=== PATIENT | female | born 1965 | race African-American/Black ===

== ENCOUNTER 2017-02-23 08:58 | Observation (INO) | payer BC ==
[2017-02-23] MEDS ORDERED: Aspirin Low Dose CHEW TAB* 81 MG PO ONE (10:47)
[2017-02-23] MEDS ORDERED: Ketorolac INJ* 30 MG/ML 1 ML VIAL IV PUSH ONE (11:14)
[2017-02-23] MEDS ORDERED: Morphine INJ* 4 MG/ML 1 ML SYRINGE IV ONE (11:14)
[2017-02-23] MEDS ORDERED: Ondansetron INJ* 2 MG/ML VIAL IV ONE (11:14)
[2017-02-23 11:31] LABS: Urine Bilirubin Negative (Negative); Urine Glucose Negative (Negative); Urine Nitrite Negative (Negative)
[2017-02-23 11:40] LABS: Hematocrit 40 % (35-47); Hemoglobin 12.9 g/dl (12.0-16.0); Mean Corpuscular HGB Conc 32 g/dl (31-36); Mean Corpuscular Hemoglobin 29 pg (27-31); Mean Corpuscular Volume 89 fL (80-97); Mean Platelet Volume 9 um3 (7.4-10.4); Red Blood Count 4.46 10^6/ul (4.0-5.4); Red Cell Distribution Width 14 % (10.5-15); White Blood Count 10.3 10^3/ul (3.5-10.8)
--- NOTE | 2017-02-23 11:49 | RAD ---
INDICATION: Chest pain. COMPARISON: Comparison is made with a prior chest x-ray study from July 20, 2008. TECHNIQUE: A portable view of the chest was obtained. FINDINGS: Cardiac and mediastinal contours appear to be within normal limits. The lungs are clear. No pleural effusion is seen. IMPRESSION: NO EVIDENCE FOR ACUTE DISEASE.
[2017-02-23 11:52] LABS: BUN/Creatinine Ratio 13.7 (8-20); Calcium 9.7 mg/dL (8.6-10.3); EGFR African American 73.8 (>60); EGFR Non-African American 57.4 (>60); Globulin 3.2 g/dL (2-4); Potassium 3.8 mmol/L (3.5-5.0); Total Bilirubin 0.4 mg/dL (0.2-1.0); Total Protein 7.2 g/dL (6.4-8.9)
[2017-02-23] MEDS ORDERED: Iohexol 350* (CONTRAST) 500 ML MDV IV ONE (12:16)
--- NOTE | 2017-02-23 12:49 | RAD ---
HISTORY: Chest pain, flank pain COMPARISONS: CT of the abdomen and pelvis dated November 12, 2015 TECHNIQUE: Multiple contiguous axial CT scans were obtained of the chest, abdomen, and pelvis after the administration of intravenous contrast. Coronal and sagittal multiplanar reformations are submitted for review.. Oral contrast was not administered. Delayed images were obtained through the abdomen and pelvis. FINDINGS: CHEST NECK AND THYROID: The lower neck and thyroid are unremarkable. CHEST WALL: There is no lower cervical, axillary, or supraclavicular lymphadenopathy by size criteria. HEART AND PERICARDIUM: The heart is unremarkable. AORTA AND PULMONARY VASCULATURE: The aorta and pulmonary vasculature are normal. There is no pulmonary arterial filling defects to suggest pulmonary was in MEDIASTINUM: There is no mediastinal lymphadenopathy by size criteria. BRET: There is no hilar lymphadenopathy by size criteria. AIRWAY AND ESOPHAGUS: The airway is unremarkable, without endobronchial filling defect. The esophagus is grossly normal. LUNG PARENCHYMA: The lungs are clear. PLEURA: No pleural abnormalities are noted. BONES AND SOFT TISSUES: Degenerative changes are noted ABDOMEN/PELVIS: LIVER: The liver is normal in shape, size, contour, and attenuation. BILE DUCTS: There is no intrahepatic or extrahepatic biliary dilatation. GALLBLADDER: The gallbladder is normal, without pericholecystic inflammatory change. PANCREAS: The pancreas is normal, without mass or ductal dilatation. SPLEEN: Normal in size and appearance. UPPER GI TRACT: Evaluation of the gastrointestinal tract is limited by incomplete gastric distention. The upper GI tract is unremarkable. SMALL BOWEL \T\ MESENTERY: The small bowel is normal in contour, course, and caliber. There is no obstruction or dilatation. COLON: There are multiple diverticula of the distal colon. There is no pericolonic inflammatory change. Normal appendix is best seen on axial images 59 through 66 ADRENALS: Normal bilaterally. KIDNEYS: The kidneys are normal in shape, size, contour, and axis. There is no hydronephrosis or nephrolithiasis. BLADDER: The bladder is incompletely distended and is not well evaluated. PELVIC ORGANS: The uterus and adnexa are grossly normal for technique. AORTA: The aorta is normal. IVC: Unremarkable LYMPH NODES: There is no lymphadenopathy by size criteria. ABDOMINAL WALL: There is no evidence for abdominal wall hernia. BONES: There are mild diffuse degenerative changes. OTHER: None IMPRESSION: 1. NO PULMONARY ARTERIAL FILLING DEFECT TO SUGGEST PULMONARY EMBOLISM. 2. DIVERTICULOSIS, WITHOUT PERICOLONIC INFLAMMATORY CHANGE TO SUGGEST DIVERTICULITIS
[2017-02-23] MEDS ORDERED: oxyCODONE/Acetamin 5/325 MG* TAB PO ONE ×2 (13:02→21:34)
[2017-02-23] MEDS ORDERED: Lisinopril TAB* 10 MG PO ONE (15:04)
--- NOTE | 2017-02-23 15:18 | CONSULT ---
Subjective Date of Service: 02/23/17 Interval History: ADMISSION HISTORY AND PHYSICAL EXAM: Allergies Allergy/AdvReac Type Severity Reaction Status Date / Time Hydrocodone Allergy Severe Vomiting Verified 11/11/15 22:32 Home Medications Medication Instructions Recorded Confirmed Type SUMAtriptan TAB* [Imitrex TAB*] 100 mg PO Q6HR PRN 10/12/13 11/12/15 History Amitriptyline TAB* [Elavil TAB*] 50 mg PO BEDTIME 10/27/15 11/12/15 History Topiramate TAB(*) [Topamax 25 MG 50 mg PO DAILY 10/27/15 11/12/15 History tab] HPI: The patient was in her usual state of health until 5 AM today. She awoke from sleep with R scapular pain. She was afraid she had a PE. She had a PE in 2007 about 2 weeks after L knee arthroscopic surgery. She does not recall any unusual activity or injury recently. She had a normal day at work yesterday. Family History: Findings - No family hx cancer, heart disease. Social History: Findings - Lives with her who is her SDM. 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 No alcohol or tobacco abuse. Review of Systems - Measurements Intake and Output: Intake and Output Last 24 Hours 02/21/17 02/22/17 02/23/17 02/24/17 06:59 06:59 06:59 06:59 Intake Total 2 Balance 2 Weight 295 lb Intake: IV Fluids 2 - Review of Systems Constitutional Symptoms: Negative: Weight Gain, Weight Loss, Weakness, Fatigue, Fever, Night Sweats, Unexplained Falls, Other Dermatology: Positive: Normal HEENT: Positive: Normal Eyes: Positive: Normal Thyroid: Positive: Normal Pulmonary: Positive: Normal Gastroenterology: Positive: Normal Genital - Urinary: Positive: Normal Musculoskeletal: Negative: Joint Pain, Joint Stiffness, Arthritis, Osteoporosis, Low Back Pain , Sciatica, Joint Deformities, Kyphoscoliosis, Other Endocrinology: Positive: Normal Hematologic/Lymphatic: Negative: Anemia, Easy Brusing, Hx Leukemia, Hx Lymphoma, Use of Anticoagulant, Use of Antiplatelet Drugs, Other Neurology: Positive: Migraines - Last migraine several months ago Psychiatry: Positive: Normal Allergic/Immunologic: Negative: Hx Anaphylaxis, Hx Angioedema, Hx Environmental, Hx Seasonal, Athsma, Hx HIV, Immunocompromise, Swollen Glands LymphNodes, Other Objective Vital Signs 02/23/17 02/23/17 02/23/17 09:02 10:03 10:05 Temperature 97.1 F Pulse Rate 84 78 Respiratory 24 Rate Blood Pressure 141/84 145/106 (mmHg) O2 Sat by Pulse 99 99 Oximetry 02/23/17 02/23/17 02/23/17 10:28 10:29 10:30 Temperature 97.2 F Pulse Rate 74 Respiratory 18 12 10 Rate Blood Pressure 171/111 159/129 171/111 (mmHg) O2 Sat by Pulse 99 Oximetry 02/23/17 02/23/17 02/23/17 11:00 11:30 11:35 Temperature Pulse Rate 73 76 Respiratory 14 16 Rate Blood Pressure 176/126 173/116 (mmHg) O2 Sat by Pulse 99 100 Oximetry 02/23/17 02/23/17 02/23/17 11:46 12:00 12:39 Temperature Pulse Rate 75 73 Respiratory 17 Rate Blood Pressure 177/120 (mmHg) O2 Sat by Pulse 98 97 98 Oximetry 02/23/17 02/23/17 02/23/17 12:50 13:00 13:11 Temperature Pulse Rate 72 72 Respiratory 17 16 Rate Blood Pressure 162/124 183/122 (mmHg) O2 Sat by Pulse 99 99 Oximetry 02/23/17 02/23/17 02/23/17 13:30 14:00 14:30 Temperature Pulse Rate 76 72 73 Respiratory 19 17 18 Rate Blood Pressure 188/106 160/113 (mmHg) O2 Sat by Pulse 99 98 100 Oximetry Oxygen Devices in Use Now: None Appearance: Alert, partly up on ED stretcher. In good spirits. Looks comfortable. Eyes: No Scleral Icterus Ears/Nose/Mouth/Throat: Clear Oropharnyx, Mucous Membranes Moist Neck: NL Appearance and Movements; NL JVP, No Thyroid Enlargement, Masses Respiratory: Symmetrical Chest Expansion and Respiratory Effort, Clear to Auscultation, Clear to Percussion Cardiovascular: NL Sounds; No Murmurs; No JVD, RRR, No Edema Abdominal: NL Sounds; No Tenderness; No Distention, No Hepatosplenomegaly Extremities: No Edema, No Clubbing, Cyanosis, - - Full ROM R arm/shoulder, sl pain on elevating arm. No chest wall/scapular tenderness Skin: No Rash or Ulcers, No Nodules or Sclerosis Neurological: Alert and Oriented x 3, NL Sensation Result Diagrams: 02/23/17 11:25 02/23/17 11:25 Assessment/Plan - Billing Plan By Medical Problem: 1. Scapular pain: appears to be musculoskeletal. Recommend APAP, heat. 2. HTN: Lisinopril 20 mg + metoprolol 25 mg given in ED. 3. Hx migraines. She hasn't had a migraine for several months and took no prescriptions meds for the past few months.
[2017-02-23] MEDS ORDERED: Metoprolol Tartrate TAB* 25 MG PO ONE (17:34)
[2017-02-23] MEDS ORDERED: oxyCODONE/Acetamin 5/325 MG* TAB PO PRN (17:36)
[2017-02-23] MEDS ORDERED: Enoxaparin(*) 40 MG/0.4 ML SYR SUBCUT SCH (18:00)
[2017-02-23] MEDS: Lisinopril TAB* 10 MG PO SCH (19:48)
[2017-02-23] MEDS: Metoprolol Tartrate TAB* 25 MG PO SCH (22:07)
[2017-02-24] MEDS: oxyCODONE/Acetamin 5/325 MG* TAB PO PRN ×3 (00:58→08:17)
[2017-02-24] MEDS: Metoprolol Tartrate TAB* 25 MG PO SCH (08:16)
[2017-02-24] MEDS: Lisinopril TAB* 10 MG PO SCH (08:20)
[2017-02-24 12:04] VITALS: BP 144/93
--- NOTE | 2017-02-24 12:10 | DCNOTE ---
"Subjective Date of Service: 02/24/17 Interval History: R scapular pain improved since yesterday. No new c/o. Anxious to go home. Family History: Findings - No family hx cancer, heart disease. Social History: Findings - Lives with her who is her SDM. 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 No alcohol or tobacco abuse. Objective Active Medications: Enoxaparin Sodium (Lovenox(*)) 40 mg SUBCUT Q24H [facility] Last Admin: 02/23/17 19:47 Dose: 40 mg Lisinopril (Prinivil Tab*) 20 mg PO BID [facility] Last Admin: 02/24/17 08:20 Dose: 20 mg Metoprolol Tartrate (Lopressor Tab*) 25 mg PO BID [facility] Last Admin: 02/24/17 08:16 Dose: 25 mg Oxycodone/Acetaminophen (Percocet 5/325 Tab*) 1 tab PO Q4H PRN PRN Reason: PAIN Last Admin: 02/23/17 19:48 Dose: 1 tab Oxycodone/Acetaminophen (Percocet 5/325 Tab*) 2 tab PO Q4H PRN PRN Reason: PAIN - MODERATE TO SEVERE Last Admin: 02/24/17 08:17 Dose: 2 tab Vital Signs 02/23/17 02/23/17 02/23/17 17:59 18:00 18:30 Temperature 98.6 F Pulse Rate 62 75 68 Respiratory 18 Rate Blood Pressure 155/95 (mmHg) O2 Sat by Pulse 100 99 99 Oximetry 02/23/17 02/23/17 02/23/17 19:05 19:48 20:00 Temperature 98.7 F Pulse Rate 99 Respiratory 16 18 18 Rate Blood Pressure 172/112 (mmHg) O2 Sat by Pulse Oximetry 02/23/17 02/23/17 02/23/17 21:48 21:58 22:05 Temperature 97.6 F Pulse Rate 72 Respiratory 18 18 18 Rate Blood Pressure 132/91 (mmHg) O2 Sat by Pulse 100 Oximetry 02/23/17 02/23/17 02/24/17 23:12 23:58 00:58 Temperature 97.9 F Pulse Rate 72 Respiratory 16 18 18 Rate Blood Pressure 116/90 (mmHg) O2 Sat by Pulse 100 Oximetry 02/24/17 02/24/17 02/24/17 02:58 03:28 04:07 Temperature 97.8 F 97.5 F Pulse Rate 65 68 Respiratory 18 18 16 Rate Blood Pressure 138/58 152/95 (mmHg) O2 Sat by Pulse 99 99 Oximetry 02/24/17 02/24/17 02/24/17 04:59 06:59 08:09 Temperature 97.6 F Pulse Rate 66 Respiratory 18 16 16 Rate Blood Pressure 137/100 (mmHg) O2 Sat by Pulse 97 Oximetry 02/24/17 08:17 Temperature Pulse Rate Respiratory 16 Rate Blood Pressure (mmHg) O2 Sat by Pulse Oximetry Oxygen Devices in Use Now: None Appearance: Alert, partly up in bed. In good spirits. Looks comfortable at rest. Neck: NL Appearance and Movements; NL JVP, No Thyroid Enlargement, Masses Respiratory: Symmetrical Chest Expansion and Respiratory Effort, Clear to Auscultation, Clear to Percussion Cardiovascular: NL Sounds; No Murmurs; No JVD, RRR, No Edema, - - point tenderness R scapular area Extremities: No Edema, No Clubbing, Cyanosis, - Skin: No Rash or Ulcers, No Nodules or Sclerosis, - Neurological: Alert and Oriented x 3, NL Sensation Result Diagrams: 02/23/17 11:25 02/23/17 11:25 Assess/Plan/Problems-Billing Plan By Medical Problem: 1. Scapular pain: appears to be musculoskeletal. Recommend APAP, heat. 2. HTN: Lisinopril 20 mg + metoprolol 25 mg given in ED. 3. Hx migraines. She hasn't had a migraine for several months and took no prescriptions meds for the past few months. - Patient Problems (1) HTN (hypertension) Current Visit: Yes Status: Acute Code(s): I10 - ESSENTIAL (PRIMARY) HYPERTENSION SNOMED Code(s): 53095952 Comment: Improved on lisinopril and BB. Fup Dr. Carroll within 1 week. (2) Migraine Current Visit: No Status: Acute Code(s): G43.909 - MIGRAINE, UNSP, NOT INTRACTABLE, WITHOUT STATUS MIGRAINOSUS SNOMED Code(s): 99602774 Comment: Continue home meds prn. Status and Disposition: Discharge now. Cooperp Dr. Carroll. Search Terms: gwen fagan, 1965 Search Date: 02/24/2017 12:14:53 PM The Drug Utilization Report below displays all of the controlled substance prescriptions, if any, that your patient has filled in the last twelve months. The information displayed on this report is compiled from pharmacy submissions to the Department, and accurately reflects the information as submitted by the pharmacies. This report was requested by: Jesus Manuel Ardian | Reference #: [id number] Others' Prescriptions Patient Name: Gwen Fagan Date: 1965 Address: [address] [place] [address] Sex: Female Rx Written Rx Dispensed Drug Quantity Days Supply Prescriber Name 01/02/2017 01/02/2017 acetaminophen-cod #3 tablet 20 4 Dale Ding DDS"
[2017-02-24] MEDS ORDERED: Ondansetron ODT TAB* 4 MG PO PRN (12:37)
[2017-02-24] MEDS ORDERED: Ondansetron INJ* 2 MG/ML VIAL IV PRN (12:41)
--- NOTE | 2017-02-25 01:54 | DS ---
CC: Dr. Carroll DISCHARGE SUMMARY: DATE OF ADMISSION: DATE OF DISCHARGE: 02/24/17 HISTORY: This 51-year-old woman presented with right scapular pain. She was very concerned that yasemin leiva had a pulmonary embolism. She had one in 2007 two weeks after having knee arthroscopy. The patient was evaluated with the CTA of the chest, which showed no evidence of pulmonary embolism. She did have markedly elevated blood pressure. She has a history of having hypertension that was treated. She has not had any treatment for about 2 years. She said she was told to stop her blood pressure medications. However, it seems she did not return for followup. The patient was given lisinopril 20 mg b.i.d. and metoprolol 25 mg b.i.d. She had 3 doses before yasemin leiva left the hospital. Her blood pressure came down significantly. The last one recorded as 144/93 at 11:17 a.m. on the day of discharge. Her routine laboratory work was unremarkable. Creatinine was 1.02. FINAL DIAGNOSES: 1. Musculoskeletal pain, right scapula. 2. Hypertension. 3. Migraines. DISCHARGE MEDICATIONS: 1. Lisinopril 20 mg b.i.d. 2. Metoprolol tartrate 25 mg b.i.d. 3. Oxycodone/acetaminophen 5/325 mg 1 every 4 hours p.r.n., dispensed 20. 4. Sumatriptan 100 mg every 6 hours p.r.n. 5. Amitriptyline 50 mg h.s. p.r.n. 6. Topiramate 50 mg daily p.r.n. [id number]/[facility] #: [id number]
--- NOTE | 2017-02-26 22:53 | ED ---
Rodger Gilmore Salem, scribed for Tanner Robles MD on 02/23/17 at 1116 . Shortness of Breath - HPI Summary HPI Summary: Patient is a 51 y/o F who presents to the ED with sudden onset SOB since this morning. She states that years ago she had knee surgery followed by PE and states that her current pain is similar to pain she had then. She reports 9/10 sharp pain and dark blood in stool last night, but denies palpitations, abd pain , edema, or pain in lower extremities. She also denies any recent travel by airplane or long-distance travel by car. No hx of CA or kidney stones. She states that she has not taken ASA today. - History of Current Complaint Chief Complaint: EDShortnessOfBreath Time Seen by Provider: 02/23/17 10:46 Hx Obtained From: Patient, Family/Mason Helper Onset/Duration: Sudden Onset, Lasting Hours, Still Present Timing: Constant Current Severity: Moderate Aggrevating Factors: Deep Breaths Alleviating Factors: Nothing Associated Signs & Symptoms: Negative - Allergy/Home Medications Allergies/Adverse Reactions: Allergies Allergy/AdvReac Type Severity Reaction Status Date / Time Hydrocodone Allergy Severe Vomiting Verified 11/11/15 22:32 PMH/Surg Hx/FS Hx/Imm Hx Endocrine/Hematology History: Denies: Hx Diabetes, Hx Thyroid Disease Cardiovascular History: Reports: Hx Hypertension Respiratory History: Reports: Hx Pneumonia, Hx Pulmonary Embolism Denies: Hx Asthma, Hx Chronic Obstructive Pulmonary Disease (COPD) GI History: Reports: Other GI Disorders - diverticulitis Denies: Hx Ulcer Musculoskeletal History: Denies: Hx Rheumatoid Arthritis, Hx Osteoporosis Sensory History: Reports: Hx Contacts or Glasses Opthamlomology History: Reports: Hx Contacts or Glasses Neurological History: Reports: Hx Migraine, Other Neuro Impairments/Disorders - MIGRAINES - Surgical History Surgery Procedure, Year, and Place: Pt. states having had "Bilateral knee surgery roughly ten yrs. ago here at [facility] [place] TUBAL LIGATION Hx Anesthesia Reactions: No Infectious Disease History: No Infectious Disease History: Denies: Hx Hepatitis, Hx Human Immunodeficiency Virus (HIV), History Other Infectious Disease, Traveled Outside the [place] in Last 30 Days - Family History Known Family History: Positive: Other - Kidney disease. - Social History Alcohol Use: Occasionally Alcohol Amount: last drink 02/20/17 Hx Substance Use: No Substance Use Type: Reports: None Hx Tobacco Use: No Smoking Status (MU): Never Smoked Tobacco Review of Systems Negative: Fever, Chills Negative: Erythema Negative: Sore Throat Negative: Palpitations, Chest Pain Negative: Shortness Of Breath, Cough Negative: Abdominal Pain, Nausea Positive: other - Dark blood in stool. . Negative: dysuria, hematuria Positive: Other - No pain in lower extremities. . Negative: Myalgia, Edema Negative: Rash Neurological: Other - No dizziness. All Other Systems Reviewed And Are Negative: Yes Physical Exam - Summary Physical Exam Summary: Constitutional: Well-developed, Well-nourished, Alert. (-) Distressed Skin: Warm, Dry HENT: Normocephalic; Atraumatic Eyes: Conjunctiva normal Neck: Musculoskeletal ROM normal neck. (-) JVD, (-) Stridor, (-) Tracheal deviation Cardio: Rhythm regular, rate normal, Heart sounds normal; Intact distal pulses; The pedal pulses are 2+ and symmetric. Radial pulses are 2+ and symmetric. (-) Murmur Pulmonary/Chest wall: Effort normal. (-) Respiratory distress, (-) Wheezes, (-) Rales Abd: Soft, (-) Distension, (-) Guarding, (-) Rebound. Right CVA tenderness. Musculoskeletal: (-) Edema Lymph: (-) Cervical adenopathy Neuro: Alert, Oriented x3 Psych: Mood and affect Normal Triage Information Reviewed: Yes Vital Signs On Initial Exam: Initial Vitals Temp Pulse Resp BP Pulse Ox 97.1 F 84 24 141/84 99 02/23/17 09:02 02/23/17 09:02 02/23/17 09:02 02/23/17 09:02 02/23/17 09:02 Vital Signs Reviewed: Yes - Harry Coma Scale Coma Scale Total: 15 Diagnostics - Vital Signs Vital Signs Temp Pulse Resp BP Pulse Ox 02/23/17 10:30 10 171/111 02/23/17 10:29 12 159/129 02/23/17 10:28 97.2 F 74 18 171/111 99 02/23/17 10:05 78 99 02/23/17 10:03 145/106 02/23/17 09:02 97.1 F 84 24 141/84 99 - Laboratory Result Diagrams: 02/23/17 11:25 02/23/17 11:25 Lab Statement: Any lab studies that have been ordered have been reviewed, and results considered in the medical decision making process. - Radiology CXR Radiology Interpretation Completed By: Radiologist - IMPRESSION: NO EVIDENCE FOR ACUTE DISEASE. - CT CT A/P/C CT Interpretation Completed By: Radiologist - IMPRESSION: 1. NO PULMONARY ARTERIAL FILLING DEFECT TO SUGGEST PULMONARY EMBOLISM. 2. DIVERTICULOSIS, WITHOUT PERICOLONIC INFLAMMATORY CHANGE TO SUGGEST DIVERTICULITIS - EKG 1016 EKG Interpretation: 74 bpm. T wave flatening V5 V6. No STEMI. Re-Evaluation - Re-Evaluation First Eval Re-Evaluation Time: 14:24 Comment: Pt still has right scapular pain, not reproducible. Course/Dx - Course Course Of Treatment: 51 y/o F presents with sudden onset SOB since this morning. She reports 9/10 sharp pain and dark blood in stool last night, but denies palpitations, abd pain, edema, or pain in lower extremities. PMHx of PE. Pt received ASA, Toradol, Morphine, and Zofran in the ED course. EKG shows 74 bpm. T wave flatening V5 V6. No STEMI. CXR shows, per radiology, IMPRESSION: NO EVIDENCE FOR ACUTE DISEASE. CT shows, per radiology, IMPRESSION: 1. NO PULMONARY ARTERIAL FILLING DEFECT TO SUGGEST PULMONARY EMBOLISM. 2. DIVERTICULOSIS, WITHOUT PERICOLONIC INFLAMMATORY CHANGE TO SUGGEST DIVERTICULITIS. Discussed case with Dr. Adrian and Dr. Blake. - Diagnoses Provider Diagnoses: SOB (shortness of breath) - Physician Notifications Discussed Care of Patient With: Holley Blake Time Discussed With Above Provider: 14:37 Instructed by Provider To: Other Discharge - Discharge Plan Condition: Stable Disposition: HOME Prescriptions: Acetaminophen [Acetaminophen Extra Stren] 500 mg PO Q6H PRN #100 tab PRN Reason: Pain Lisinopril [Zestril 20 MG-] 20 mg PO DAILY #30 tab Patient Education Materials: Hypertension (ED) Referrals: Faustina Carroll MD [Primary Care Provider] - Additional Instructions: Use heating pad as needed. The documentation as recorded by the Rodger rutledge Salem accurately reflects the service I personally performed and the decisions made by , Tanner Robles MD.
== END 2017-02-24 11:55 | disposition home or self-care (01) ==
LOC: ED 08:58 → MEDTELE 17:32 → MED 18:58
PROVIDERS: ADMIT Internal Medicine; ATTEND Internal Medicine
DX: M54.89 Other dorsalgia (principal); R06.02 Shortness of breath; I10 Essential (primary) hypertension; G43.909 Migraine, unspecified, not intractable, without status migrainosus; Z79.899 Other long term (current) drug therapy; Z86.711 Personal history of pulmonary embolism
CPT/HCPCS: 36415; 71010; 71275; 74177; 80053; 81003; 83605; 84484; 85025; 93005; 96372; 96374; 96375; 96376; 99285; A9270-GY; G0378; J1650; J1885; J2270; J2405; Q9967

== ENCOUNTER 2017-03-06 23:47 | Emergency (ER) | payer BC ==
[2017-03-07] MEDS ORDERED: Ondansetron INJ* 2 MG/ML VIAL IV ONE (01:36)
[2017-03-07] MEDS ORDERED: NS 0.9% 1000 ML* 1,000 ML IV ONE ×2 (01:36→03:48)
[2017-03-07] MEDS ORDERED: HYDROmorphone* 1 MG/ML 1 ML SYR IV ONE ×2 (01:36→04:21)
[2017-03-07 02:41] LABS: Hematocrit 43 % (35-47); Hemoglobin 13.7 g/dl (12.0-16.0); Mean Corpuscular HGB Conc 32 g/dl (31-36); Mean Corpuscular Hemoglobin 29 pg (27-31); Mean Corpuscular Volume 90 fL (80-97); Mean Platelet Volume 8 um3 (7.4-10.4); Red Cell Distribution Width 14 % (10.5-15); White Blood Count 13.6 10^3/ul (3.5-10.8)
[2017-03-07 02:56] LABS: BUN/Creatinine Ratio 9.7 (8-20); C Reactive Protein 12.16 mg/L (< 5.00); Calcium 9.9 mg/dL (8.6-10.3); EGFR African American 72.9 (>60); EGFR Non-African American 56.7 (>60); Globulin 3.5 g/dL (2-4); Potassium 3.7 mmol/L (3.5-5.0); Total Bilirubin 0.4 mg/dL (0.2-1.0); Total Protein 7.5 g/dL (6.4-8.9)
[2017-03-07] MEDS ORDERED: Iohexol 300* (CONTRAST) 10 ML SDV IV ONE (03:16)
[2017-03-07] MEDS ORDERED: HYDROmorphone* 1 MG/ML 1 ML SYR ONE (04:22)
--- NOTE | 2017-03-07 05:21 | ED ---
Suman Gilmore Benjamin, scribed for Demetria Oliver MD on 03/07/17 at 0323 . Abdominal Pain/Female - HPI Summary HPI Summary: 51yo female c/o constipation and diffuse low abdominal pain for 1 week. Pt usually has 1-2 BM weekly without any pain but reports not having a BM for over a week. Pt has hx of diverticulitis last year. Pt reports nausea, but hasnt vomited. Rates the pain as 9 out of 10. - History of Current Complaint Chief Complaint: EDAbdPain Stated Complaint: ABD PAIN Time Seen by Provider: 03/07/17 00:53 Hx Obtained From: Patient, Family/Emblem Cutter - partner Hx Last Menstrual Period: 2 WEEKS AGO ?: No Onset/Duration: Gradual Onset, Lasting Weeks - 10 days, Still Present Timing: Constant Severity Initially: Mild Severity Currently: Moderate Pain Intensity: 9 Pain Scale Used: 0-10 Numeric Location: Discrete At: RLQ, Discrete At: LLQ, Suprapubic Radiates: No Aggravating Factor(s): Other: - palpation Alleviating Factor(s): Nothing Associated Signs and Symptoms: Positive: Constipation, Nausea. Negative: Fever , Chest Pain, Back Pain, Vomiting Allergies/Adverse Reactions: Allergies Allergy/AdvReac Type Severity Reaction Status Date / Time Hydrocodone Allergy Severe Vomiting Verified 11/11/15 22:32 PMH/Surg Hx/FS Hx/Imm Hx Endocrine/Hematology History: Denies: Hx Diabetes, Hx Thyroid Disease Cardiovascular History: Reports: Hx Hypertension Respiratory History: Reports: Hx Pneumonia, Hx Pulmonary Embolism Denies: Hx Asthma, Hx Chronic Obstructive Pulmonary Disease (COPD) GI History: Reports: Other GI Disorders - diverticulitis Denies: Hx Ulcer History: Denies: Hx Dialysis, Hx Renal Disease Musculoskeletal History: Denies: Hx Arthritis, Hx Rheumatoid Arthritis, Hx Osteoporosis Sensory History: Reports: Hx Contacts or Glasses Denies: Hx Hearing Aid Opthamlomology History: Reports: Hx Contacts or Glasses Neurological History: Reports: Hx Migraine, Other Neuro Impairments/Disorders - MIGRAINES - Surgical History Surgery Procedure, Year, and Place: Pt. states having had "Bilateral knee surgery roughly ten yrs. ago here at [facility] [place] TUBAL LIGATION Hx Anesthesia Reactions: No Infectious Disease History: No Infectious Disease History: Denies: Hx Hepatitis, Hx Human Immunodeficiency Virus (HIV), History Other Infectious Disease, Traveled Outside the [place] in Last 30 Days - Family History Known Family History: Positive: Cardiac Disease, Hypertension, Diabetes, Renal Disease - Social History Occupation: Employed Full-time Lives: With Family Alcohol Use: Occasionally Alcohol Amount: last drink 02/20/17 Hx Substance Use: No Substance Use Type: Reports: None Hx Tobacco Use: No Smoking Status (MU): Never Smoked Tobacco Review of Systems Constitutional: Negative Negative: Fever, Chills Eyes: Negative ENT: Negative Cardiovascular: Negative Negative: Chest Pain Negative: Shortness Of Breath, Cough Positive: Abdominal Pain - LLQ , Nausea, Other - constipation. Negative: Vomiting, Diarrhea Genitourinary: Negative Musculoskeletal: Negative Skin: Negative Neurological: Negative Psychological: Normal All Other Systems Reviewed And Are Negative: Yes Physical Exam Triage Information Reviewed: Yes Vital Signs On Initial Exam: Initial Vitals Temp Pulse Resp BP Pulse Ox 98.3 F 71 20 171/77 100 03/06/17 23:53 03/06/17 23:53 03/06/17 23:53 03/06/17 23:53 03/06/17 23:53 Vital Signs Reviewed: Yes Appearance: Positive: Well-Appearing, No Pain Distress, Obese Skin: Positive: Warm, Skin Color Reflects Adequate Perfusion, Dry Head/Face: Positive: Normal Head/Face Inspection Eyes: Positive: EOMI, ROBBIN ENT: Positive: Normal ENT inspection, Hearing grossly normal, Pharynx normal, TMs normal Neck: Positive: Supple, Nontender Respiratory/Lung Sounds: Positive: Clear to Auscultation, Breath Sounds Present. Negative: Rales, Rhonchi Cardiovascular: Positive: RRR. Negative: Murmur Abdomen Description: Positive: Soft, Other: - diffuse low abdominal tenderness, most pain in LLQ. Negative: Distended, Guarding Bowel Sounds: Positive: Present Musculoskeletal: Positive: Strength/ROM Intact Neurological: Positive: Sensory/Motor Intact, Alert, Oriented to Person Place, Time, CN Intact II-III Psychiatric: Positive: Affect/Mood Appropriate - [place] Coma Scale Coma Scale Total: 15 Diagnostics - Vital Signs Vital Signs Temp Pulse Resp BP Pulse Ox 03/07/17 02:56 18 03/06/17 23:53 98.3 F 71 20 171/77 100 - Laboratory Lab Results: Lab Results 03/07/17 03/07/17 03/07/17 Range/Units 02:30 02:30 02:30 WBC 13.6 H (3.5-10.8) 10^3/ul RBC 4.80 (4.0-5.4) 10^6/ul Hgb 13.7 (12.0-16.0) g/dl Hct 43 (35-47) % MCV 90 (80-97) fL MCH 29 (27-31) pg MCHC 32 (31-36) g/dl RDW 14 (10.5-15) % Plt Count 304 (150-450) 10^3/ul MPV 8 (7.4-10.4) um3 Neut % (Auto) 56.8 (38-83) % Lymph % (Auto) 30.6 (25-47) % [place] % (Auto) 6.1 (1-9) % Eos % (Auto) 5.5 (0-6) % Baso % (Auto) 1.0 (0-2) % Absolute Neuts (auto) 7.7 (1.5-7.7) 10^3/ul Absolute Lymphs (auto) 4.2 (1.0-4.8) 10^3/ul Absolute Monos (auto) 0.8 (0-0.8) 10^3/ul Absolute Eos (auto) 0.7 H (0-0.6) 10^3/ul Absolute Basos (auto) 0.1 (0-0.2) 10^3/ul Absolute Nucleated RBC 0.01 10^3/ul Nucleated RBC % 0 Sodium 133 (133-145) mmol/L Potassium 3.7 (3.5-5.0) mmol/L Chloride 100 L (101-111) mmol/L Carbon Dioxide 28 (22-32) mmol/L Anion Gap 5 (2-11) mmol/L BUN 10 (6-24) mg/dL Creatinine 1.03 H (0.51-0.95) mg/dL Est GFR ( Amer) 72.9 (>60) Est GFR (Non-Af Amer) 56.7 (>60) BUN/Creatinine Ratio 9.7 (8-20) Glucose 100 (70-100) mg/dL Lactic Acid 0.7 (0.5-2.0) mmol/L Calcium 9.9 (8.6-10.3) mg/dL Total Bilirubin 0.40 (0.2-1.0) mg/dL AST 27 (13-39) U/L ALT 25 (7-52) U/L Alkaline Phosphatase 116 H (34-104) U/L C-Reactive Protein 12.16 H (< 5.00) mg/L Total Protein 7.5 (6.4-8.9) g/dL Albumin 4.0 (3.2-5.2) g/dL Globulin 3.5 (2-4) g/dL Albumin/Globulin Ratio 1.1 (1-3) Lipase 57 (11.0-82.0) U/L Beta HCG, Quant 0.85 mIU/mL Result Diagrams: 03/07/17 02:30 03/07/17 02:30 Lab Statement: Any lab studies that have been ordered have been reviewed, and results considered in the medical decision making process. - CT CT C/P W CT Interpretation: Positive (See Comments) - diverticulosis CT Interpretation Completed By: Radiologist Abdominal Pain Fem Course/Dx - Course Course Of Treatment: 51 yo female with worsened constipation and left lower quadrant pain, ct shows diverticulitis a dose of IV zosyn given here to cover and pt was sent home on augmentin - Diagnoses Provider Diagnoses: Diverticulitis Discharge - Discharge Plan Condition: Stable Disposition: HOME Prescriptions: Amoxicillin/Clavulanate TAB* [Augmentin TAB 875*] 875 mg PO BID #20 tab oxyCODONE/Acetamin 5/325 MG* [Percocet 5/325 TAB*] 1 tab PO Q8H PRN #14 tab MDD 3 PRN Reason: Pain Patient Education Materials: Diverticulitis (ED) Referrals: Faustina Carroll MD [Primary Care Provider] - The documentation as recorded by the Suman rutledge Benjamin accurately reflects the service I personally performed and the decisions made by me, Demetria Oliver MD.
[2017-03-07] MEDS ORDERED: LORazepam INJ* 2 MG/ML 1 ML VIAL IV PUSH ONE (05:45)
[2017-03-07] MEDS ORDERED: Ketorolac INJ* 30 MG/ML 1 ML VIAL IV ONE (05:45)
[2017-03-07] MEDS ORDERED: LORazepam INJ* 2 MG/ML 1 ML VIAL ONE (05:48)
[2017-03-07] MEDS ORDERED: Ketorolac INJ* 30 MG/ML 1 ML VIAL ONE (05:48)
[2017-03-07 06:48] VITALS: BP 140/96
--- NOTE | 2017-03-07 08:24 | RAD ---
INDICATION: Left lower quadrant abdominal pain. COMPARISON: Comparison is made to the prior study from February 23, 2017. TECHNIQUE: A CT scan of the abdomen and pelvis was performed with intravenous and oral contrast following intravenous injection of 150 ml of Omnipaque 300 nonionic contrast. Contiguous axial sections were obtained from the lung bases through the symphysis pubis. Images were reconstructed in the coronal and sagittal planes. FINDINGS: There is mild dependent bilateral lower lobe subsegmental atelectasis. No pleural effusion is present. The liver is mildly enlarged without significant focal abnormality. The spleen appears to be within normal limits in size. There are small accessory spleen's present. No calcified gallstones are seen. The pancreas appears to be within normal limits. The kidneys and adrenal glands are normal in size. No hydronephrosis is seen. No significant focal renal abnormality is seen. The aorta is normal in caliber and demonstrates homogeneous contrast opacification. No significant enlarged retroperitoneal lymph nodes are seen. The stomach, small and large bowel appear nondistended. The appendix is not well visualized and there are no inflammatory changes in the right lower quadrant. There is mild thickening of the wall of the colon at the descending sigmoid junction with stranding in the adjacent mesenteric fat. These findings are nonspecific although most consistent with diverticulitis. There is mild descending and sigmoid diverticulosis. No abscess is seen. The uterus is anteverted and normal in size. There is a small amount of free intraperitoneal fluid in the pelvis. No free intraperitoneal air is seen. No significant focal osseous abnormality is seen. IMPRESSION: MILD THICKENING OF THE WALL OF THE COLON AT THE DESCENDING SIGMOID JUNCTION WITH STRANDING IN THE ADJACENT MESENTERIC FAT. THESE FINDINGS ARE NONSPECIFIC ALTHOUGH MOST CONSISTENT WITH DIVERTICULITIS. RECOMMEND CLINICAL CORRELATION. THE RESULTS OF THIS EXAMINATION WERE DISCUSSED WITH THE EMERGENCY DEPARTMENT CHARGE NURSE.
== END 2017-03-07 06:48 | disposition home or self-care (01) ==
LOC: ED 23:47
DX: K57.32 Diverticulitis of large intestine without perforation or abscess without bleeding (principal); R11.0 Nausea; K59.00 Constipation, unspecified; Z32.02 Encounter for pregnancy test, result negative; I10 Essential (primary) hypertension; G43.909 Migraine, unspecified, not intractable, without status migrainosus; E66.9 Obesity, unspecified; Z86.711 Personal history of pulmonary embolism
CPT/HCPCS: 36415; 74177; 80053; 83605; 83690; 84702; 85025; 86140; 96361; 96374; 96375; 96376; 99283; J1170; J1885; J2060; J2405; J2543; Q9967

== ENCOUNTER 2017-03-09 16:20 | Inpatient (IN) | payer BC ==
[2017-03-09] MEDS ORDERED: HYDROmorphone* 1 MG/ML 1 ML SYR IV ONE (18:05)
[2017-03-09] MEDS ORDERED: NS 0.9% 1000 ML* 1,000 ML IV ONE (18:05)
[2017-03-09] MEDS ORDERED: LORazepam INJ* 2 MG/ML 1 ML VIAL IV PUSH ONE (18:06)
[2017-03-09 18:40] LABS: Hematocrit 41 % (35-47); Hemoglobin 13.4 g/dl (12.0-16.0); Mean Corpuscular HGB Conc 33 g/dl (31-36); Mean Corpuscular Hemoglobin 29 pg (27-31); Mean Corpuscular Volume 89 fL (80-97); Mean Platelet Volume 9 um3 (7.4-10.4); Red Blood Count 4.65 10^6/ul (4.0-5.4); Red Cell Distribution Width 14 % (10.5-15); White Blood Count 16.8 10^3/ul (3.5-10.8)
[2017-03-09 18:55] LABS: ALT 18 U/L (7-52); Albumin 3.8 g/dL (3.2-5.2); Alkaline Phosphatase 116 U/L (34-104); BUN/Creatinine Ratio 6.7 (8-20); Blood Urea Nitrogen 7 mg/dL (6-24); CO2 Carbon Dioxide 26 mmol/L (22-32); Calcium 9.6 mg/dL (8.6-10.3); Chloride 101 mmol/L (101-111); EGFR African American 71.3 (>60); EGFR Non-African American 55.5 (>60); Globulin 3.4 g/dL (2-4); Glucose 92 mg/dL (70-100); Lipase 41 U/L (11.0-82.0); Sodium 136 mmol/L (133-145); Total Protein 7.2 g/dL (6.4-8.9)
[2017-03-09 19:03] LABS: Anion Gap 9 mmol/L (2-11)
--- NOTE | 2017-03-09 19:51 | ED ---
Rio Gilmore Auryana, scribed for Demetria Oliver MD on 03/09/17 at 1750 . Abdominal Pain/Female - HPI Summary HPI Summary: 51 year old female present with abdominal pain starting 1 week ago worse since today. She was seen here 4 days ago with the same symptoms with diagnosis of diverticulitis - given ABX. She also reports nausea and vomiting and has been unable to keep the ABX down. She also c/o worsening abdominal pain and fevers. PMHx is significant for HTN and diverticulitis. PCP is Dr. Carroll. - History of Current Complaint Chief Complaint: EDAbdPain Stated Complaint: ABD PAIN,N/V Time Seen by Provider: 03/09/17 17:46 Hx Obtained From: Patient Hx Last Menstrual Period: 2 WEEKS AGO Onset/Duration: Gradual Onset, Lasting Days, Still Present, Worse Since - today Timing: Constant Severity Initially: Moderate Severity Currently: Severe Pain Intensity: 9 Pain Scale Used: 0-10 Numeric Location: Diffuse Aggravating Factor(s): Food - and drink Associated Signs and Symptoms: Positive: Fever - none on arrival, Nausea, Vomiting Simlar Episode/Dx as:: YES SEE HPI Allergies/Adverse Reactions: Allergies Allergy/AdvReac Type Severity Reaction Status Date / Time Hydrocodone Allergy Severe Vomiting Verified 11/11/15 22:32 PMH/Surg Hx/FS Hx/Imm Hx Endocrine/Hematology History: Denies: Hx Diabetes, Hx Thyroid Disease Cardiovascular History: Reports: Hx Hypertension Respiratory History: Reports: Hx Pneumonia, Hx Pulmonary Embolism Denies: Hx Asthma, Hx Chronic Obstructive Pulmonary Disease (COPD) GI History: Reports: Other GI Disorders - diverticulitis Denies: Hx Ulcer History: Denies: Hx Dialysis, Hx Renal Disease Musculoskeletal History: Denies: Hx Arthritis, Hx Rheumatoid Arthritis, Hx Osteoporosis Sensory History: Reports: Hx Contacts or Glasses Denies: Hx Hearing Aid Opthamlomology History: Reports: Hx Contacts or Glasses Neurological History: Reports: Hx Migraine, Other Neuro Impairments/Disorders - MIGRAINES - Surgical History Surgery Procedure, Year, and Place: Pt. states having had "Bilateral knee surgery roughly ten yrs. ago here at [facility] [place] TUBAL LIGATION Hx Anesthesia Reactions: No Infectious Disease History: No Infectious Disease History: Denies: Hx Hepatitis, Hx Human Immunodeficiency Virus (HIV), History Other Infectious Disease, Traveled Outside the [place] in Last 30 Days - Family History Known Family History: Positive: Cardiac Disease, Hypertension, Diabetes, Renal Disease, Other - Kidney disease. - Social History Alcohol Use: Occasionally Alcohol Amount: last drink 02/20/17 Hx Substance Use: No Substance Use Type: Reports: None Hx Tobacco Use: No Smoking Status (MU): Never Smoked Tobacco Review of Systems Positive: Fever - REPORTS FEVER BUT NONE ON ARRIVAL Eyes: Negative ENT: Negative Cardiovascular: Negative Respiratory: Negative Positive: Abdominal Pain, Vomiting, Nausea Genitourinary: Negative Musculoskeletal: Negative Skin: Negative Neurological: Negative Psychological: Normal All Other Systems Reviewed And Are Negative: Yes Physical Exam - Summary Physical Exam Summary: General: mildly ill appearing, mild to moderate pain distress. Skin: Warm, Skin Color Reflects Adequate Perfusion, Dry Eyes: EOMI, ROBBIN ENT: Pharynx normal, TMs normal Neck: Supple, nontender Respiratory: CTA, breath sounds present, no rhonchi, no wheezes, no rales Cardiovascular: RRR, no murmur, no rub, no gallop Abdomen: Soft, LLQ tenderness, Non-distended, no guarding, no rebound Bowel: Present Musculoskeletal: BRIANA, No edema Neuro: Sensory/motor intact, A&Ox3, CN intact 2-12 Psych: Affect/mood appropriate Triage Information Reviewed: Yes Vital Signs On Initial Exam: Initial Vitals Temp Pulse Resp BP Pulse Ox 97.5 F 71 20 170/49 97 03/09/17 16:26 03/09/17 16:26 03/09/17 16:26 03/09/17 16:26 03/09/17 16:26 Vital Signs Reviewed: Yes - [place] Coma Scale Coma Scale Total: 15 Diagnostics - Vital Signs Vital Signs Temp Pulse Resp BP Pulse Ox 03/09/17 17:23 98.4 F 74 18 174/113 99 03/09/17 16:26 97.5 F 71 20 170/49 97 - Laboratory Lab Results: Lab Results 03/09/17 03/09/17 03/09/17 Range/Units 18:33 18:33 18:33 WBC 16.8 H (3.5-10.8) 10^3/ul RBC 4.65 (4.0-5.4) 10^6/ul Hgb 13.4 (12.0-16.0) g/dl Hct 41 (35-47) % MCV 89 (80-97) fL MCH 29 (27-31) pg MCHC 33 (31-36) g/dl RDW 14 (10.5-15) % Plt Count 296 (150-450) 10^3/ul MPV 9 (7.4-10.4) um3 Neut % (Auto) 71.3 (38-83) % Lymph % (Auto) 18.3 L (25-47) % [place] % (Auto) 8.5 (1-9) % Eos % (Auto) 1.4 (0-6) % Baso % (Auto) 0.5 (0-2) % Absolute Neuts (auto) 12.0 H (1.5-7.7) 10^3/ul Absolute Lymphs (auto) 3.1 (1.0-4.8) 10^3/ul Absolute Monos (auto) 1.4 H (0-0.8) 10^3/ul Absolute Eos (auto) 0.2 (0-0.6) 10^3/ul Absolute Basos (auto) 0.1 (0-0.2) 10^3/ul Absolute Nucleated RBC 0.01 10^3/ul Nucleated RBC % 0 Sodium 136 (133-145) mmol/L Potassium TNP Chloride 101 (101-111) mmol/L Carbon Dioxide 26 (22-32) mmol/L Anion Gap 9 (2-11) mmol/L BUN 7 (6-24) mg/dL Creatinine 1.05 H (0.51-0.95) mg/dL Est GFR ( Amer) 71.3 (>60) Est GFR (Non-Af Amer) 55.5 (>60) BUN/Creatinine Ratio 6.7 L (8-20) Glucose 92 (70-100) mg/dL Lactic Acid 0.6 (0.5-2.0) mmol/L Calcium 9.6 (8.6-10.3) mg/dL Total Bilirubin 0.60 (0.2-1.0) mg/dL AST TNP ALT 18 (7-52) U/L Alkaline Phosphatase 116 H (34-104) U/L C-Reactive Protein 57.40 H (< 5.00) mg/L Total Protein 7.2 (6.4-8.9) g/dL Albumin 3.8 (3.2-5.2) g/dL Globulin 3.4 (2-4) g/dL Albumin/Globulin Ratio 1.1 (1-3) Lipase 41 (11.0-82.0) U/L Result Diagrams: 03/09/17 18:33 03/09/17 18:33 Lab Statement: Any lab studies that have been ordered have been reviewed, and results considered in the medical decision making process. Abdominal Pain Fem Course/Dx - Course Course Of Treatment: 51 yo female with diverticulitis failing outpt treatment with vomiting, and pain increased wbc, ct abd/pelvis ordered iv abx ordered case discussed with Dr. Aranda and pt accepted for admission - Diagnoses Provider Diagnoses: Diverticulitis - Provider Notifications Discussed Care Of Patient With: Torin Pittman Time Discussed With Above Provider: 19:15 - agrees to admit Discharge - Discharge Plan Condition: Stable Disposition: ADMITTED TO [facility] Referrals: Faustina Carroll MD [Primary Care Provider] - The documentation as recorded by the Rio rutledge Auryana accurately reflects the service I personally performed and the decisions made by , Demetria Oliver MD.
[2017-03-09] MEDS ORDERED: Acetaminophen TAB* 325 MG PO PRN (19:58)
[2017-03-09] MEDS ORDERED: Meropenem 1 GM IV - ED ONCE IV ONE (20:00)
[2017-03-09] MEDS ORDERED: CMCS: Melatonin (NF) 3 MG TAB PO PRN (20:01)
[2017-03-09] MEDS ORDERED: NS 0.9% 1000 ML* 1,000 ML IV SCH (20:15)
--- NOTE | 2017-03-09 20:17 | HP ---
H&P (Free Text) History and Physical: PCP: Selvin Carroll MD Date/Time of Evaluation: 03/09/20171944 CC: abdominal pain HPI: Mrs Fagan is a 51YO obese female who originally presented to [facility] [place] [facility] 2016 found to have diverticulitis on CT and discharged on PO amoxicillin/ tazobactam. In the interval she has not improved, continued to have sweats, N/V , LLQ abdominal pain, & subjective F/C for which she returns. She reports compliance with the outpatient ABX. WBCs have increased from 13k to 16k. Repeat CT abd/pel W is pending. PMedHx migraines HX pulmonary embolism Ambulatory Orders Nursing to reconcile. SUMAtriptan TAB* [Imitrex TAB*] 100 mg PO Q6HR PRN 10/12/13 Amitriptyline TAB* [Elavil TAB*] 50 mg PO BEDTIME PRN #0 02/24/17 Lisinopril TAB* [Prinivil TAB 10 MG*] 20 mg PO BID #60 tab 02/24/17 Metoprolol Tartrate TAB* [Lopressor TAB*] 25 mg PO BID #60 tab 02/24/17 Topiramate TAB(*) [Topamax 25 MG tab] 50 mg PO DAILY PRN #0 02/24/17 oxyCODONE/Acetamin 5/325 MG* [Percocet 5/325 TAB*] 1 tab PO Q4H PRN #20 tab MDD 6 02/24/17 Amoxicillin/Clavulanate TAB* [Augmentin TAB 875*] 875 mg PO BID #20 tab Ondansetron ODT TAB* [Zofran 4 MG Odt TAB*] 4 mg PO Q6H PRN #15 tab.odt oxyCODONE/Acetamin 5/325 MG* [Percocet 5/325 TAB*] 1 tab PO Q8H PRN #14 tab MDD 3 03/07/17 Allergies Hydrocodone Adverse Reaction (Intermediate, Verified 03/09/17 20:03) Vomiting PSurgHx tonsillectomy B knee arthroscopy SocHx: no tobacco, alcohol, or recreational drugs; lives with her ; full code status FamHx: reviewed, non-contributory ROS: as above, otherwise reviewed and all were negative Constitutional: NAD, normally developed, obese black female vitals: Vital Signs Temp 36.9 C 03/09/17 17:23 Pulse 74 03/09/17 17:23 Resp 18 03/09/17 18:44 BP 174/113 03/09/17 17:23 Pulse Ox 99 03/09/17 17:23 Intake & Output 03/08/17 03/09/17 03/09/17 23:59 11:59 23:59 Weight 132.903 kg Eyes: sclera/conjunctiva: non-icteric/clear; blephara: normal ENMT: auricles: normal; hearing: clinically intact; oropharynx: clear, mucous membranes tacky Neck: soft tissue: non-tender; thyroid: normal Pulmonary: clear to auscultation bilaterally, good aeration, no accessory muscle use CV: RR/RR, normal S1S2, no carotid bruit, no jugular venous distention, 2+ B DP/ PT, no edema Abdominal: soft, non-distended, mod tender LLQ with voluntary guarding but no rebound/rigidity, normoactive bowel sounds, no hepatosplenomegaly or masses, no costovertebral angle tenderness Musculoskeletal: general: grossly intact; gait: stable Integumental: normal appearance and texture Psychiatric orientation: AA&O to PPS affect: pleasant mood: cooperative eye contact: good content: reliable responses: timely insight: good Testing: Lab Results 03/09/17 03/09/17 03/09/17 Range/Units 18:33 18:33 18:33 WBC 16.8 H (3.5-10.8) 10^3/ul RBC 4.65 (4.0-5.4) 10^6/ul Hgb 13.4 (12.0-16.0) g/dl Hct 41 (35-47) % MCV 89 (80-97) fL MCH 29 (27-31) pg MCHC 33 (31-36) g/dl RDW 14 (10.5-15) % Plt Count 296 (150-450) 10^3/ul MPV 9 (7.4-10.4) um3 Neut % (Auto) 71.3 (38-83) % Lymph % (Auto) 18.3 L (25-47) % [place] % (Auto) 8.5 (1-9) % Eos % (Auto) 1.4 (0-6) % Baso % (Auto) 0.5 (0-2) % Absolute Neuts (auto) 12.0 H (1.5-7.7) 10^3/ul Absolute Lymphs (auto) 3.1 (1.0-4.8) 10^3/ul Absolute Monos (auto) 1.4 H (0-0.8) 10^3/ul Absolute Eos (auto) 0.2 (0-0.6) 10^3/ul Absolute Basos (auto) 0.1 (0-0.2) 10^3/ul Absolute Nucleated RBC 0.01 10^3/ul Nucleated RBC % 0 Sodium 136 (133-145) mmol/L Potassium TNP Chloride 101 (101-111) mmol/L Carbon Dioxide 26 (22-32) mmol/L Anion Gap 9 (2-11) mmol/L BUN 7 (6-24) mg/dL Creatinine 1.05 H (0.51-0.95) mg/dL Est GFR ( Amer) 71.3 (>60) Est GFR (Non-Af Amer) 55.5 (>60) BUN/Creatinine Ratio 6.7 L (8-20) Glucose 92 (70-100) mg/dL Lactic Acid 0.6 (0.5-2.0) mmol/L Calcium 9.6 (8.6-10.3) mg/dL Total Bilirubin 0.60 (0.2-1.0) mg/dL AST TNP ALT 18 (7-52) U/L Alkaline Phosphatase 116 H (34-104) U/L C-Reactive Protein 57.40 H (< 5.00) mg/L Total Protein 7.2 (6.4-8.9) g/dL Albumin 3.8 (3.2-5.2) g/dL Globulin 3.4 (2-4) g/dL Albumin/Globulin Ratio 1.1 (1-3) Lipase 41 (11.0-82.0) U/L CT abd/pel W (03/07/2017), personally reviewed: IMPRESSION: MILD THICKENING OF THE WALL OF THE COLON AT THE DESCENDING SIGMOID JUNCTION WITH STRANDING IN THE ADJACENT MESENTERIC FAT. THESE FINDINGS ARE NONSPECIFIC ALTHOUGH MOST CONSISTENT WITH DIVERTICULITIS. RECOMMEND CLINICAL CORRELATION. THE RESULTS OF THIS EXAMINATION WERE DISCUSSED WITH THE EMERGENCY DEPARTMENT CHARGE NURSE. CT abd/pel (03/09/2017), personally reviewed: IMPRESSION: 1. THERE IS PROGRESSIVE MUCOSAL THICKENING OF THE SIGMOID COLON WITH PERICOLONIC INFLAMMATORY CHANGE. THE APPEARANCE IS MORE SUGGESTIVE OF COLITIS, THOUGH DIVERTICULITIS IS STILL WITHIN THE DIFFERENTIAL. 2. THERE IS NO LOCULATED FLUID COLLECTION TO SUGGEST ABSCESS. 3. THERE IS A SMALL AMOUNT OF FREE FLUID WITHIN THE PELVIC CUL-DE-SAC Impression: 49F failed outpatient treatment for diverticulitis DIAGNOSIS & PLAN Primary sigmoid diverticulitis : IV ciprofloxacin & metronidazole : IVFs : pain control : supportive care Secondary migraines : no acute issues : continue sumatriptan PRN, amitriptyline, & topiramate Admission Rational: inpatient for IV ABX and pain control for diverticulitis failed outpatient management DVTp: SCDs Code Status: full HCP:
[2017-03-09] MEDS ORDERED: METRONIDAZOLE IVPB ONE (20:18)
[2017-03-09] MEDS ORDERED: Iohexol 300* (CONTRAST) 10 ML SDV IV ONE (20:26)
[2017-03-09] MEDS ORDERED: metroNIDAZOLE IV 500 MG/100ML* 500 MG/100 ML BAG IVPB ONE (21:00)
[2017-03-09] MEDS ORDERED: Ciprofloxacin 400MG IVPREMIX(* 400 MG/200 ML BAG IVPB ONE (21:00)
--- NOTE | 2017-03-09 21:38 | RAD ---
CLINICAL HISTORY: Diverticulitis, worsening pain COMPARISON: March 07, 2017 TECHNIQUE: Multiple contiguous axial CT scans were obtained of the abdomen and pelvis after the administration of intravenous contrast. Coronal and sagittal multiplanar reformations are submitted for review. Oral contrast was administered. Delayed images were obtained through the abdomen and pelvis. FINDINGS: LUNG BASES: The lung bases are clear. LIVER: The liver is normal in shape, size, contour, and attenuation. BILE DUCTS: There is no intrahepatic or extrahepatic biliary dilatation. GALLBLADDER: The gallbladder is normal, without pericholecystic inflammatory change. PANCREAS: The pancreas is normal, without mass or ductal dilatation. SPLEEN: Normal in size and appearance. UPPER GI TRACT: Evaluation of the gastrointestinal tract is limited by incomplete gastric distention. The upper GI tract is unremarkable. SMALL BOWEL AND MESENTERY: The small bowel is normal in contour, course, and caliber. There is no obstruction or dilatation. COLON: There is progressive mucosal thickening of the sigmoid colon with stranding of the pericolonic fat. There is no loculated fluid collection. ADRENALS: Normal bilaterally. KIDNEYS: The kidneys are normal in shape, size, contour, and axis. There is no hydronephrosis or nephrolithiasis. BLADDER: The bladder is smooth in contour. PELVIC ORGANS: The uterus and adnexa are grossly normal for technique.. There is a small amount of free fluid within the pelvic cul-de-sac. AORTA: The aorta is normal. IVC: Unremarkable LYMPH NODES: There is no lymphadenopathy by size criteria. ABDOMINAL WALL: There is no evidence for abdominal wall hernia. BONES AND SOFT TISSUES: There are mild diffuse degenerative changes. OTHER: None IMPRESSION: 1. THERE IS PROGRESSIVE MUCOSAL THICKENING OF THE SIGMOID COLON WITH PERICOLONIC INFLAMMATORY CHANGE. THE APPEARANCE IS MORE SUGGESTIVE OF COLITIS, THOUGH DIVERTICULITIS IS STILL WITHIN THE DIFFERENTIAL. 2. THERE IS NO LOCULATED FLUID COLLECTION TO SUGGEST ABSCESS. 3. THERE IS A SMALL AMOUNT OF FREE FLUID WITHIN THE PELVIC CUL-DE-SAC
[2017-03-09] MEDS: Ondansetron INJ* 2 MG/ML VIAL IV PRN (21:54)
[2017-03-09] MEDS: oxyCODONE TAB* 5 MG TAB PO PRN (21:54)
[2017-03-09] MEDS: HYDROmorphone* 1 MG/ML 1 ML SYR IV PRN (23:00)
[2017-03-09 23:43] LABS: Urine Bilirubin Negative (Negative); Urine Glucose Negative (Negative); Urine Nitrite Negative (Negative)
[2017-03-10] MEDS ORDERED: PROCHLORPERAZINE INJ 5 MG/ML 2 ML VIAL ONE (00:44)
[2017-03-10] MEDS: HYDROmorphone* 1 MG/ML 1 ML SYR IV PRN ×5 (03:13→22:35)
[2017-03-10] MEDS: metroNIDAZOLE IV 500 MG/100ML* 500 MG/100 ML BAG IVPB SCH ×3 (05:47→22:36)
[2017-03-10] MEDS: Omeprazole CAP* 20 MG PO SCH (05:47)
[2017-03-10 06:20] LABS: Comments Flag Yes; Hematocrit 37 % (35-47); Mean Corpuscular HGB Conc 33 g/dl (31-36); Mean Corpuscular Hemoglobin 29 pg (27-31); Mean Corpuscular Volume 89 fL (80-97); Mean Platelet Volume 9 um3 (7.4-10.4); Red Blood Count 4.14 10^6/ul (4.0-5.4); Red Cell Distribution Width 14 % (10.5-15); White Blood Count 15.9 10^3/ul (3.5-10.8)
[2017-03-10] MEDS: Ciprofloxacin 400MG IVPREMIX(* 400 MG/200 ML BAG IVPB SCH ×2 (08:01→20:56)
[2017-03-10] MEDS: Ondansetron INJ* 2 MG/ML VIAL IV PRN ×2 (08:04→15:39)
[2017-03-10] MEDS: PROCHLORPERAZINE INJ 5 MG/ML 2 ML VIAL IV PRN ×2 (13:08→21:01)
[2017-03-10] MEDS: Bisacodyl EC TAB* 5 MG PO SCH (13:49)
--- NOTE | 2017-03-10 15:09 | PN ---
Subjective Date of Service: 03/10/17 Interval History: HOSPITALIST PROGRESS NOTE Patient seen and examined at bedside. She states 2 weeks ago she started to have mild LLQ pain, travelled to [place] and blamed the pain on her constipation, as she states she cannot have a BM if not at home. She was uncomfortable while there, tried different foods rich in fiber, Miralax, MOM, with no success. She states driving back her pain was intense and she could "feel every bump in the road", but still thought this was constipation related. Presented to ED on 03/07, had a CT done that showed sigmoid diverticulitis. She was prescribed Augmentin, but states her symptoms have progressed. LLQ pain is 10/10, has N/V, she thinks she had a fever, although not measured. Family History: Unchanged from Admission Social History: Unchanged from Admission Past Medical History: Unchanged from Admission Objective Active Medications: Acetaminophen (Tylenol Tab*) 650 mg PO Q6H PRN PRN Reason: FEVER/PAIN Bisacodyl (Dulcolax Ec Tab*) 10 mg PO DAILY [facility] Last Admin: 03/10/17 13:49 Dose: 10 mg Hydromorphone HCl (Dilaudid Iv*) 1 mg IV Q4H PRN PRN Reason: PAIN Last Admin: 03/10/17 13:48 Dose: 1 mg Ciprofloxacin/Dextrose (Cipro 400 Mg Ivpremix(*)) 400 mg in 200 mls @ 200 mls/ hr IVPB Q12H [facility] Last Admin: 03/10/17 08:01 Dose: 200 mls/hr Sodium Chloride (Ns 0.9% 1000 Ml*) 1,000 mls @ 125 mls/hr IV PER RATE [facility] Last Admin: 03/10/17 05:49 Dose: 125 mls/hr Metronidazole/Sodium Chloride (Flagyl 500 Mg Ivpb*) 500 mg in 100 mls @ 100 mls /hr IVPB Q8H [facility] Last Admin: 03/10/17 13:48 Dose: 100 mls/hr Melatonin (Melatonin (Nf)) 3 mg PO BEDTIME PRN; Protocol PRN Reason: Sleep Omeprazole (Prilosec Cap*) 20 mg PO DAILY@0600 [facility] Last Admin: 03/10/17 05:47 Dose: 20 mg Ondansetron HCl (Zofran Inj*) 4 mg IV Q6H PRN PRN Reason: NAUSEA Last Admin: 03/10/17 08:04 Dose: 4 mg Oxycodone HCl (Roxycodone Tab*) 5 mg PO Q4H PRN PRN Reason: PAIN Last Admin: 03/09/17 21:54 Dose: 5 mg Polyethylene Glycol/Electrolytes (Miralax*) 17 gm PO 0800,2100 [facility] Prochlorperazine Edisylate (Compazine Inj*) 10 mg IV Q6H PRN PRN Reason: NAUSEA Last Admin: 03/10/17 13:08 Dose: 10 mg Vital Signs 03/10/17 03/10/17 03/10/17 03:13 04:08 04:13 Temperature 98.7 F Pulse Rate 90 Respiratory 18 16 16 Rate Blood Pressure 147/84 (mmHg) O2 Sat by Pulse 97 Oximetry Oxygen Devices in Use Now: None Appearance: Pleasant obese lady lying in bed in NAD. Eyes: No Scleral Icterus Ears/Nose/Mouth/Throat: Mucous Membranes Moist Neck: Trachea Midline Respiratory: Symmetrical Chest Expansion and Respiratory Effort, Clear to Auscultation Cardiovascular: NL Sounds; No Murmurs; No JVD, RRR Abdominal: - - Soft, obese, mild diffuse tenderness. Tenderness is more intense at LLQ, no guarding or reboun, BS+ Extremities: No Edema Neurological: Alert and Oriented x 3, NL Muscle Strength and Tone Lines/Tubes/Other Access: Clean, Dry and Intact Peripheral IV Nutrition: Taking PO's Result Diagrams: 03/10/17 05:53 03/09/17 19:30 Assess/Plan/Problems-Billing Assessment: Mrs. Fagan is a 51yo F with PMH of migraines, HTN, h/o PE, h/o diverticulitis in 2016, who presented to ED with c/o abdominal pain, found to have another episode of diverticulitis (failed outpatient therapy). - Patient Problems (1) Diverticulitis Comment: - Repeat CT reviewed - colitis is in the differential, but her clinical picture suggests diverticulitis. - Continue IVF, Cipro, Metronidazole, and pain management. - Diet as tolerated. - Start Miralax. (2) HTN (hypertension) Comment: - Higher today. - Resume Lisinopril and Metoprolol. (3) DVT prophylaxis Comment: - SQ heparin and SCDs. (4) Full code status Status and Disposition: Change to inpatient.
[2017-03-10] MEDS: oxyCODONE TAB* 5 MG TAB PO PRN ×2 (15:39→20:55)
[2017-03-10] MEDS ORDERED: Amitriptyline TAB* 50 MG PO PRN (15:43)
--- NOTE | 2017-03-10 16:40 | RAD ---
HISTORY: Diverticulitis, obstruction COMPARISONS: CT dated March 09, 2017 VIEWS: Frontal views of the abdomen. FINDINGS: BOWEL: There is a nonspecific bowel gas pattern, with nondilated small bowel gas noted. Oral contrast is noted within the descending and transverse colon CALCULI: There are no abnormal calculi. BONES AND SOFT TISSUES: There are no osseous abnormalities. OTHER FINDINGS: The lung bases are clear. There is no subphrenic gas. IMPRESSION: NONSPECIFIC BOWEL GAS PATTERN. ORAL CONTRAST IS NOTED WITHIN THE PROXIMAL AND MID COLON
[2017-03-10] MEDS: Metoprolol Tartrate TAB* 25 MG PO SCH ×2 (18:19→20:56)
[2017-03-10] MEDS: Heparin VIAL(*) 5000 UNITS/ML VIAL (FIVE THOUSAND) SUBCUT SCH ×2 (18:19→20:56)
[2017-03-10] MEDS: Lisinopril TAB* 10 MG PO SCH (20:56)
[2017-03-10] MEDS: Polyethylene Glycol 3350* 17 GM PACKET PO SCH (21:01)
[2017-03-11] MEDS: HYDROmorphone* 1 MG/ML 1 ML SYR IV PRN ×6 (03:13→23:28)
[2017-03-11] MEDS: NS 0.9% 1000 ML* 1,000 ML IV SCH ×2 (03:16→18:45)
[2017-03-11] MEDS: Heparin VIAL(*) 5000 UNITS/ML VIAL (FIVE THOUSAND) SUBCUT SCH ×3 (05:29→23:28)
[2017-03-11] MEDS: metroNIDAZOLE IV 500 MG/100ML* 500 MG/100 ML BAG IVPB SCH ×3 (05:29→23:28)
[2017-03-11] MEDS: Ondansetron INJ* 2 MG/ML VIAL IV PRN ×4 (05:30→23:28)
[2017-03-11] MEDS: Omeprazole CAP* 20 MG PO SCH (05:30)
[2017-03-11 05:31] LABS: ALT 13 U/L (7-52); Albumin 3.4 g/dL (3.2-5.2); Alkaline Phosphatase 108 U/L (34-104); Anion Gap 9 mmol/L (2-11); BUN/Creatinine Ratio 6.4 (8-20); Blood Urea Nitrogen 6 mg/dL (6-24); CO2 Carbon Dioxide 20 mmol/L (22-32); Calcium 8.9 mg/dL (8.6-10.3); Chloride 106 mmol/L (101-111); EGFR African American 81.1 (>60); Glucose 95 mg/dL (70-100); Sodium 135 mmol/L (133-145); Total Protein 6.4 g/dL (6.4-8.9)
[2017-03-11] MEDS: oxyCODONE TAB* 5 MG TAB PO PRN ×2 (05:42→20:09)
[2017-03-11] MEDS: PROCHLORPERAZINE INJ 5 MG/ML 2 ML VIAL IV PRN ×3 (07:23→20:09)
[2017-03-11] MEDS: Ciprofloxacin 400MG IVPREMIX(* 400 MG/200 ML BAG IVPB SCH ×2 (08:23→20:01)
[2017-03-11 08:27] LABS: Add Diff/Slide Review? Slide Review Added; Comments Flag Yes; Hematocrit 36 % (35-47); Hemoglobin 11.7 g/dl (12.0-16.0); Mean Corpuscular HGB Conc 33 g/dl (31-36); Mean Corpuscular Hemoglobin 29 pg (27-31); Mean Corpuscular Volume 89 fL (80-97); Mean Platelet Volume 9 um3 (7.4-10.4); Red Blood Count 4.04 10^6/ul (4.0-5.4); Red Cell Distribution Width 14 % (10.5-15); White Blood Count 11.9 10^3/ul (3.5-10.8)
--- NOTE | 2017-03-11 08:38 | RAD ---
INDICATION: Diverticulitis evaluate for obstruction. COMPARISON: Comparison is made with a prior CT of the abdomen and pelvis from March 09, 2017 and prior KUB series from March 10, 2017. TECHNIQUE: Frontal supine films of the abdomen were obtained. FINDINGS: There is oral contrast present within the ascending, transverse and descending colon. There is mild distention of the colon up to the region of the sigmoid colon. The small bowel and stomach appear nondistended. IMPRESSION: MILD DISTENTION OF THE COLON SUGGESTIVE OF A MILD OBSTRUCTION OR ILEUS , UNCHANGED.
[2017-03-11] MEDS: Lisinopril TAB* 10 MG PO SCH ×2 (09:09→20:02)
[2017-03-11] MEDS: Bisacodyl EC TAB* 5 MG PO SCH (09:09)
[2017-03-11] MEDS: Metoprolol Tartrate TAB* 25 MG PO SCH ×2 (09:09→20:03)
[2017-03-11] MEDS: Polyethylene Glycol 3350* 17 GM PACKET PO SCH ×2 (09:10→20:03)
[2017-03-11] MEDS ORDERED: Sodium Phosphate ADULT ENEMA* 118 ml bottle PR ONE (10:59)
[2017-03-11] MEDS: Magnesium Hydroxide LIQ* 30 ML UDC PO SCH ×2 (11:33→20:01)
--- NOTE | 2017-03-11 14:50 | PN ---
Subjective Date of Service: 03/11/17 Interval History: HOSPITALIST PROGRESS NOTE Patient seen and examined at bedside. She c/o LLQ pain spreading to her whole belly. Had nausea and vomiting last night and could not tolerated a solid diet. Passing flatus, no BM so far. Family History: Unchanged from Admission Social History: Unchanged from Admission Past Medical History: Unchanged from Admission Objective Active Medications: Acetaminophen (Tylenol Tab*) 650 mg PO Q6H PRN PRN Reason: FEVER/PAIN Amitriptyline HCl (Elavil Tab*) 50 mg PO BEDTIME PRN PRN Reason: MIGRAINE HEADACHE Bisacodyl (Dulcolax Ec Tab*) 10 mg PO DAILY [facility] Last Admin: 03/11/17 09:09 Dose: 10 mg Heparin Sodium (Porcine) (Heparin Vial(*)) 5,000 units SUBCUT Q8HR [facility] Last Admin: 03/11/17 14:05 Dose: 5,000 units Hydromorphone HCl (Dilaudid Iv*) 1 mg IV Q4H PRN PRN Reason: PAIN Last Admin: 03/11/17 11:33 Dose: 1 mg Ciprofloxacin/Dextrose (Cipro 400 Mg Ivpremix(*)) 400 mg in 200 mls @ 200 mls/ hr IVPB Q12H [facility] Last Admin: 03/11/17 08:23 Dose: 200 mls/hr Metronidazole/Sodium Chloride (Flagyl 500 Mg Ivpb*) 500 mg in 100 mls @ 100 mls /hr IVPB Q8H [facility] Last Admin: 03/11/17 14:28 Dose: 100 mls/hr Sodium Chloride (Ns 0.9% 1000 Ml*) 1,000 mls @ 100 mls/hr IV PER RATE [facility] Last Admin: 03/11/17 03:16 Dose: 100 mls/hr Lisinopril (Prinivil Tab*) 20 mg PO BID [facility] Last Admin: 03/11/17 09:09 Dose: 20 mg Magnesium Hydroxide (Milk Of Magnesia Liq*) 30 ml PO BID [facility] Last Admin: 03/11/17 11:33 Dose: 30 ml Melatonin (Melatonin (Nf)) 3 mg PO BEDTIME PRN; Protocol PRN Reason: Sleep Metoprolol Tartrate (Lopressor Tab*) 25 mg PO BID [facility] Last Admin: 03/11/17 09:09 Dose: 25 mg Omeprazole (Prilosec Cap*) 20 mg PO DAILY@0600 [facility] Last Admin: 03/11/17 05:30 Dose: 20 mg Ondansetron HCl (Zofran Inj*) 4 mg IV Q6H PRN PRN Reason: NAUSEA Last Admin: 03/11/17 11:33 Dose: 4 mg Oxycodone HCl (Roxycodone Tab*) 5 mg PO Q4H PRN PRN Reason: PAIN Last Admin: 03/11/17 05:42 Dose: 5 mg Polyethylene Glycol/Electrolytes (Miralax*) 17 gm PO 0800,2100 [facility] Last Admin: 03/11/17 09:10 Dose: 17 gm Prochlorperazine Edisylate (Compazine Inj*) 10 mg IV Q6H PRN PRN Reason: NAUSEA Last Admin: 03/11/17 14:04 Dose: 10 mg Vital Signs 03/11/17 03/11/17 03/11/17 07:32 07:42 08:00 Temperature 97.8 F Pulse Rate 71 Respiratory 16 16 16 Rate Blood Pressure 117/79 (mmHg) O2 Sat by Pulse 100 Oximetry Oxygen Devices in Use Now: None Appearance: Middle aged obese lady lying in bed in [facility]. Eyes: No Scleral Icterus Ears/Nose/Mouth/Throat: Mucous Membranes Moist Neck: Trachea Midline Respiratory: Symmetrical Chest Expansion and Respiratory Effort, Clear to Auscultation Cardiovascular: NL Sounds; No Murmurs; No JVD, RRR Abdominal: - - Obese, mild diffuse abdominal pain, more intense on LLQ, no guarding, no rebound, BS+ Neurological: Alert and Oriented x 3, NL Muscle Strength and Tone Lines/Tubes/Other Access: Clean, Dry and Intact Peripheral IV Nutrition: Taking PO's Result Diagrams: 03/11/17 07:42 03/11/17 05:00 Assess/Plan/Problems-Billing Assessment: Mrs. Fagan is a 51yo F with PMH of migraines, HTN, h/o PE, h/o diverticulitis in 2016, who presented to ED with c/o abdominal pain, found to have another episode of diverticulitis (failed outpatient therapy). - Patient Problems (1) Diverticulitis Comment: - Repeat CT reviewed - colitis is in the differential, but her clinical picture suggests diverticulitis. - Continue IVF, Cipro, Metronidazole, and pain management. - Change to clear liquid diet. - KUB shows contrast has progressed from transverse colon to descending colon today. She has normal BS. - Will continue laxatives and add Fleet enema. - Leukocytosis is trending down. (2) HTN (hypertension) Comment: - Better controlled. - Continue Lisinopril and Metoprolol. (3) DVT prophylaxis Comment: - SQ heparin and SCDs. (4) Full code status Status and Disposition: Inpatient. updated at bedside.
--- NOTE | 2017-03-11 22:14 | CONS ---
CC: Faustina Carroll MD CONSULTATION REPORT: DATE OF CONSULT: 03/11/17 REASON FOR CONSULT: Sigmoid diverticulitis. HISTORY OF PRESENT ILLNESS: This is a 51-year-old female with a previous history of sigmoid diverticulitis for which she was admitted to [facility] in October 2015. That episode was associated with blood per rectum and after that she reports she had an outpatient GI evaluation through the [facility] including colonoscopy which was reportedly negative. Her most recent episode started approximately 10 days ago when she had been traveling. She reports she can normally develop constipation when traveling and she has not had a bowel movement for 10 days. About 7 days ago, she noted severe lower abdominal pain on the left side which was unrelieved by Mylanta. She also tried milk of magnesia for her constipation with no relief. She presented to the emergency room at [facility] on 03/06/[address] scan was performed at that time, which demonstrated diverticulitis of the descending sigmoid junction and she was prescribed oral antibiotics and discharged home. She subsequently developed nausea and vomiting after taking the antibiotics and then ended up returning to the emergency room on 03/09/17 and had a repeat CT scan which confirmed again acute diverticulitis; however, she had wbc's that had increased from 13,000 to almost 17,000. She was, therefore, admitted to the hospitalist service and placed on IV antibiotics. She reports she has had some improvement in her symptoms; however, she still has left lower quadrant abdominal pain, worse with movement, has not had a bowel movement, is not passing any flatus. She reports she has had subjective fever, no chills. She denies any urinary symptoms. PAST MEDICAL HISTORY: Her past medical history is significant for diverticulosis, diverticulitis, migraine headaches, clinically severe obesity, and pulmonary embolism. Hypertension. PAST SURGICAL HISTORY: She has had bilateral knee arthroscopies and tonsillectomy. MEDICATIONS: Currently: 1. Omeprazole 20 mg daily. 2. Metronidazole 500 mg IV every 8 hours. 3. Ciprofloxacin 400 mg IV every 12 hours. 4. Dulcolax 10 mg. 5. Normal saline. 6. Heparin subcutaneous. 7. Metoprolol 25 mg p.o. b.i.d. 8. Lisinopril 20 mg p.o. b.i.d. 9. MiraLAX. 10. Milk of magnesia. ALLERGIES: HYDROCODONE. FAMILY HISTORY: Reviewed and noncontributory. SOCIAL HISTORY: She is . 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 She does not smoke. She drinks 3 alcoholic beverages a week. She denies drug use. REVIEW OF SYSTEMS: A 14-point review of systems completed and negative except for the findings as above. PHYSICAL EXAMINATION: 6 feet 1 inches tall, 305 pounds, BMI of 40. Her blood pressure is 117/79, temperature 97.8, pulse 71, respirations 16, O2 saturation on room air is 100%. Head is normocephalic and atraumatic. Sclerae anicteric and mucous membranes were moist. There is no otorrhea or rhinorrhea. Her neck is symmetrical with trachea midline, no palpable lymphadenopathy or masses. Lungs are clear to auscultation bilaterally without wheezes, rales or rhonchi. Heart is regular, S1, S2, no murmurs, rubs or gallops appreciated. Abdomen is obese. Bowel sounds are present. No scars. The abdomen is soft to palpation with no tympany. There was tenderness diffusely in the lower abdomen left greater than right. Extremities are warm. LABORATORY DATA: Significant for white blood cell count of 11.9 which is decreased. Hemoglobin of 11.7, which is also slightly decreased. Platelet count is normal. There is no left shift. Chemistries: Bicarb is down to 20, alk phos is elevated at 108. IMAGING: CT scan images from 03/09/17 were reviewed and findings are consistent with sigmoid diverticulitis. KUB from 03/11/17 shows distention of the colon, which is mild, consistent with ileus or obstruction. IMPRESSION: A 51-year-old female with acute sigmoid diverticulitis with associated ileus and she seems to be improving on IV antibiotics. She does not have a surgical abdomen and does not require any acute surgical intervention at this time. PLAN/RECOMMENDATIONS: Continue bowel rest and IV antibiotics. [facility] will follow with you. [id number]/[facility] #: [id number] MTDD
[2017-03-11] MEDS ORDERED: hydrALAZINE IV* 20 MG/ML VIAL IV PRN (23:40)
[2017-03-12] MEDS ORDERED: hydrALAZINE IV* 20 MG/ML VIAL ONE (00:08)
[2017-03-12] MEDS: oxyCODONE TAB* 5 MG TAB PO PRN (01:31)
[2017-03-12] MEDS: PROCHLORPERAZINE INJ 5 MG/ML 2 ML VIAL IV PRN ×3 (03:58→18:16)
[2017-03-12] MEDS: HYDROmorphone* 1 MG/ML 1 ML SYR IV PRN ×5 (04:04→23:35)
[2017-03-12] MEDS: Heparin VIAL(*) 5000 UNITS/ML VIAL (FIVE THOUSAND) SUBCUT SCH ×3 (06:04→21:22)
[2017-03-12] MEDS: metroNIDAZOLE IV 500 MG/100ML* 500 MG/100 ML BAG IVPB SCH ×3 (06:04→22:45)
[2017-03-12] MEDS: Omeprazole CAP* 20 MG PO SCH (06:05)
[2017-03-12] MEDS: Bisacodyl EC TAB* 5 MG PO SCH (08:11)
[2017-03-12] MEDS: Lisinopril TAB* 10 MG PO SCH ×2 (08:11→21:22)
[2017-03-12] MEDS: Polyethylene Glycol 3350* 17 GM PACKET PO SCH ×2 (08:11→21:22)
[2017-03-12] MEDS: Metoprolol Tartrate TAB* 25 MG PO SCH ×2 (08:12→21:21)
[2017-03-12] MEDS: Ciprofloxacin 400MG IVPREMIX(* 400 MG/200 ML BAG IVPB SCH ×2 (08:12→19:40)
[2017-03-12] MEDS: Magnesium Hydroxide LIQ* 30 ML UDC PO SCH ×2 (08:15→08:22)
[2017-03-12] MEDS ORDERED: Magnesium Hydroxide LIQ* 30 ML UDC PO PRN (08:22)
[2017-03-12] MEDS: Ondansetron INJ* 2 MG/ML VIAL IV PRN ×3 (08:23→21:22)
[2017-03-12] MEDS ORDERED: Bisacodyl EC TAB* 5 MG PO SCH (11:53)
--- NOTE | 2017-03-12 12:00 | PN ---
Subjective Date of Service: 03/12/17 Interval History: HOSPITALIST PROGRESS NOTE Patient seen and examined at bedside. She feels much better today. Had a BM earlier today, with significant relief of her abdominal pain. Still has nausea, but no vomiting so far today. Family History: Unchanged from Admission Social History: Unchanged from Admission Past Medical History: Unchanged from Admission Objective Active Medications: Acetaminophen (Tylenol Tab*) 650 mg PO Q6H PRN PRN Reason: FEVER/PAIN Amitriptyline HCl (Elavil Tab*) 50 mg PO BEDTIME PRN PRN Reason: MIGRAINE HEADACHE Bisacodyl (Dulcolax Ec Tab*) 10 mg PO DAILY [facility] Heparin Sodium (Porcine) (Heparin Vial(*)) 5,000 units SUBCUT Q8HR [facility] Last Admin: 03/12/17 06:04 Dose: 5,000 units Hydralazine HCl (Apresoline Iv*) 10 mg IV Q4H PRN PRN Reason: Systolic >170 Last Admin: 03/12/17 00:11 Dose: 10 mg Hydromorphone HCl (Dilaudid Iv*) 1 mg IV Q4H PRN PRN Reason: PAIN Last Admin: 03/12/17 10:48 Dose: 1 mg Ciprofloxacin/Dextrose (Cipro 400 Mg Ivpremix(*)) 400 mg in 200 mls @ 200 mls/ hr IVPB Q12H [facility] Last Admin: 03/12/17 08:12 Dose: 200 mls/hr Metronidazole/Sodium Chloride (Flagyl 500 Mg Ivpb*) 500 mg in 100 mls @ 100 mls /hr IVPB Q8H [facility] Last Admin: 03/12/17 06:04 Dose: 100 mls/hr Sodium Chloride (Ns 0.9% 1000 Ml*) 1,000 mls @ 100 mls/hr IV PER RATE [facility] Last Admin: 03/11/17 18:45 Dose: 100 mls/hr Lisinopril (Prinivil Tab*) 20 mg PO BID [facility] Last Admin: 03/12/17 08:11 Dose: 20 mg Melatonin (Melatonin (Nf)) 3 mg PO BEDTIME PRN; Protocol PRN Reason: Sleep Metoprolol Tartrate (Lopressor Tab*) 25 mg PO BID [facility] Last Admin: 03/12/17 08:12 Dose: 25 mg Omeprazole (Prilosec Cap*) 20 mg PO DAILY@0600 [facility] Last Admin: 03/12/17 06:05 Dose: 20 mg Ondansetron HCl (Zofran Inj*) 4 mg IV Q6H PRN PRN Reason: NAUSEA Last Admin: 03/12/17 08:23 Dose: 4 mg Oxycodone HCl (Roxycodone Tab*) 5 mg PO Q4H PRN PRN Reason: PAIN Last Admin: 03/12/17 01:31 Dose: 5 mg Polyethylene Glycol/Electrolytes (Miralax*) 17 gm PO 0800,2100 [facility] Prochlorperazine Edisylate (Compazine Inj*) 10 mg IV Q6H PRN PRN Reason: NAUSEA Last Admin: 03/12/17 10:01 Dose: 10 mg Vital Signs 03/12/17 03/12/17 03/12/17 07:13 08:00 10:48 Temperature 98.4 F Pulse Rate 81 Respiratory 16 16 16 Rate Blood Pressure 143/82 (mmHg) O2 Sat by Pulse 98 Oximetry Oxygen Devices in Use Now: None Appearance: Pleasant middle aged lady, in good spirits, sitting up in bed in NAD. Eyes: No Scleral Icterus Ears/Nose/Mouth/Throat: Mucous Membranes Moist Neck: Trachea Midline Respiratory: Symmetrical Chest Expansion and Respiratory Effort, Clear to Auscultation Cardiovascular: NL Sounds; No Murmurs; No JVD, RRR Abdominal: - - Obese, softer than yesterday, NG, NR, BS+ Extremities: No Edema Neurological: Alert and Oriented x 3, NL Muscle Strength and Tone Lines/Tubes/Other Access: Clean, Dry and Intact Peripheral IV Nutrition: Taking PO's Result Diagrams: 03/11/17 07:42 03/11/17 05:00 Assess/Plan/Problems-Billing Assessment: Mrs. Fagan is a 51yo F with PMH of migraines, HTN, h/o PE, h/o diverticulitis in 2016, who presented to ED with c/o abdominal pain, found to have another episode of diverticulitis (failed outpatient therapy). - Patient Problems (1) Diverticulitis Comment: - Repeat CT reviewed - colitis is in the differential, but her clinical picture suggests diverticulitis. - Continue IVF, Cipro, Metronidazole, and pain management. - Advance to full liquid diet as tolerated. (2) HTN (hypertension) Comment: - Controlled. - Continue Lisinopril and Metoprolol. (3) DVT prophylaxis Comment: - SQ heparin and SCDs. (4) Full code status Status and Disposition: Inpatient. updated at bedside.
--- NOTE | 2017-03-12 15:29 | PN ---
Progress Note - Progress Note Date of Service: 03/12/17 SOAP: Subjective: "better". She had a BM and some flatus. Still has nausea. Pain is well controlled with meds she got 30 min ago. Objective: Vital Signs Temp 98.1 F 03/12/17 11:33 Pulse 71 03/12/17 11:33 Resp 16 03/12/17 14:49 BP 143/84 03/12/17 11:33 Pulse Ox 100 03/12/17 11:33 NAD Abd: obese; soft; tender LLQ but decreased. Intake & Output 03/11/17 03/12/17 03/12/17 18:59 06:59 18:59 Intake Total 220 1210 2397 Balance 220 1210 2397 Intake: IV Fluids 229 708 7768 ABX - CIPROFLOXACIN 200 409 ABX - FLAGYL 100 100 NS (0.9%) 600 1988 Oral 120 310 Other: Estimated Void Medium Medium # Bowel Movements 0 2 1 Estimated Stool Amount Medium # Voids 2 2 Assessment: Sigmoid diverticulitis with improving ileus. Plan: Continue IV antibiotics for now. She likely will need at least 2 week course of abx. Would limit oral intake to clears until improved bowel function. F/u WBCs.
[2017-03-13] MEDS: PROCHLORPERAZINE INJ 5 MG/ML 2 ML VIAL IV PRN (00:43)
[2017-03-13] MEDS: NS 0.9% 1000 ML* 1,000 ML IV SCH (03:34)
[2017-03-13] MEDS: Ondansetron INJ* 2 MG/ML VIAL IV PRN (03:44)
[2017-03-13] MEDS: Heparin VIAL(*) 5000 UNITS/ML VIAL (FIVE THOUSAND) SUBCUT SCH (05:57)
[2017-03-13] MEDS: Omeprazole CAP* 20 MG PO SCH (05:57)
[2017-03-13] MEDS: metroNIDAZOLE IV 500 MG/100ML* 500 MG/100 ML BAG IVPB SCH (05:58)
[2017-03-13 07:02] LABS: Hematocrit 37 % (35-47); Hemoglobin 11.9 g/dl (12.0-16.0); Mean Corpuscular HGB Conc 32 g/dl (31-36); Mean Corpuscular Hemoglobin 28 pg (27-31); Mean Corpuscular Volume 88 fL (80-97); Mean Platelet Volume 8 um3 (7.4-10.4); Red Blood Count 4.18 10^6/ul (4.0-5.4); Red Cell Distribution Width 14 % (10.5-15); White Blood Count 11.4 10^3/ul (3.5-10.8)
[2017-03-13 07:17] LABS: BUN/Creatinine Ratio 3.9 (8-20); Calcium 9.3 mg/dL (8.6-10.3); EGFR African American 73.8 (>60); EGFR Non-African American 57.4 (>60); Potassium 3.5 mmol/L (3.5-5.0)
[2017-03-13 07:44] VITALS: BP 138/88
[2017-03-13] MEDS: Polyethylene Glycol 3350* 17 GM PACKET PO SCH (08:06)
[2017-03-13] MEDS: Ciprofloxacin 400MG IVPREMIX(* 400 MG/200 ML BAG IVPB SCH (08:06)
[2017-03-13] MEDS: Lisinopril TAB* 10 MG PO SCH (08:07)
[2017-03-13] MEDS: Metoprolol Tartrate TAB* 25 MG PO SCH (08:07)
--- NOTE | 2017-03-13 12:17 | PN ---
Progress Note - Progress Note Date of Service: 03/13/17 SOAP: Subjective: Doing much better today. Denies any pain, nausea, vomiting, fever or chills. Tolerating diet and ready to go home. Objective: Awake and alert, sitting on bed, ready to be discharged. VSS, afebrile Abdomen soft, NT and ND. No gaurding or rebound. Assessment: A 51 y/o female with sigmoid diverticulitis, improving with Abx and conservative measures. Plan: Agree with d/c to home on PO Abx F/U with surgical associates in 1-2 weeks.
--- NOTE | 2017-03-14 09:59 | DS ---
CC: Dr. Carroll; Dr. Loredo DISCHARGE SUMMARY: DATE OF ADMISSION: 03/09/17 DATE OF DISCHARGE: 03/13/17 PRIMARY CARE PROVIDER: Dr. Carroll. CONSULTING SURGEON: Dr. Loredo. DISCHARGE DIAGNOSIS: Acute diverticulitis. SECONDARY DIAGNOSES: 1. Migraines. 2. Hypertension. 3. History of PE. 4. History of diverticulitis in 2016. 5. Morbid obesity with BMI of 40. MEDICATION LIST: 1. Acetaminophen 650 mg p.o. q.6h. p.r.n. pain or fever. 2. Amitriptyline 50 mg p.o. at bedtime as needed for migraines. 3. Bisacodyl 10 mg p.o. daily, hold for loose stools. 4. Ciprofloxacin 500 mg p.o. q.12h. for 2 weeks. 5. Ibuprofen 600 mg p.o. q.6h. p.r.n. pain. 6. Lisinopril 10 mg p.o. b.i.d. 7. Metoprolol tartrate 55 mg p.o. b.i.d. 8. Metronidazole 500 mg p.o. q.8h. for 2 weeks. 9. Omeprazole 20 mg p.o. daily at 6 a.m. 10. MiraLAX 17 g p.o. b.i.d., hold for loose stools. 11. Imitrex 100 mg p.o. q.6h. p.r.n. migraines. HOSPITAL COURSE: Ms. Fagan is a 51-year-old lady with past medical history as stated above that pr esented to the emergency room on March 07 with abdominal pain and was found to have diverticulitis and was discharged home on Augmentin. She had little improvement of her pain, developed significant constipation, and returned to the emergency room for further evaluation. For more details about he r presentation, I refer you to her history and physical. CT of the abdomen and pelvis showed progressive mucosal thickening of the sigmoid colon with very co lonic inflammatory change, appearance suggestive of colitis although diverticulitis is within the di fferential. No loculated fluid collection to suggest abscess. Small amount of free fluid was in th e pelvic cul-de-sac. The patient was started on ciprofloxacin and metronidazole, and had progressive improvement of her s ymptoms. She remained afebrile with stable vital signs. Her leukocytosis has improved. She was ab le to have bowel movements while in the hospital, and we advanced her diet and she was able to lavelle ate a regular diet. The patient was seen in consultation by General Surgery (Dr. Loredo) who felt that the patient did not have any surgical indication at this point, but the plan is for her to follow up with [facility] in 1 to 2 weeks. The patient will also need follow up with Gastroenterology as outpatient after this inflammatory process has resolved for a followup colonoscopy as this is not her first ep isode of diverticulitis. The patient is medically stable for discharge today, to follow up with Dr. Carroll as outpatient. PHYSICAL EXAMINATION: Vital Signs: Temperature 98.3, heart rate 80, respiratory rate 18, oxygen sa turation 100% on room, blood pressure 138/88. General: Patient is a pleasant, obese lady lying in bed in no acute distress. CVS: Normal S1 and S2. Regular rate and rhythm. Chest: Breath sounds present bilaterally with no added sounds. Abdomen is obese, soft, mild left lower quadrant tenderne ss. No guarding, no rebound. Bowel sounds are present. Extremities: No edema. Neuro: She is arabella rt and oriented x3. Able to move all 4 extremities. DIET: Low-salt diet. ACTIVITY: As tolerated. DISPOSITION: To home. STATUS WHILE IN THE HOSPITAL: Inpatient. Please keep in mind that this is a summarized version of this patient's hospital stay. If you need more information, please do not hesitate to call me at or please obtain the full medic al records. TIME SPENT: Approximately 45 minutes were spent to complete this discharge. [id number]/[facility] #: [id number]
== END 2017-03-13 13:15 | disposition home or self-care (01) | DRG 244 ==
LOC: ED 16:20 → MED 19:46 → OBSVTOIN 03-10 15:46
PROVIDERS: ADMIT Hospitalist; ATTEND Internal Medicine
DX: K57.32 Diverticulitis of large intestine without perforation or abscess without bleeding (principal); K56.7 Ileus, unspecified; I10 Essential (primary) hypertension; Z68.41 Body mass index [BMI] 40.0-44.9, adult; R40.2412 Glasgow coma scale score 13-15, at arrival to emergency department; E66.01 Morbid (severe) obesity due to excess calories; G43.909 Migraine, unspecified, not intractable, without status migrainosus; Z86.711 Personal history of pulmonary embolism; Z88.5 Allergy status to narcotic agent; Z87.01 Personal history of pneumonia (recurrent); Z98.51 Tubal ligation status; Z82.49 Family history of ischemic heart disease and other diseases of the circulatory system; Z83.3 Family history of diabetes mellitus; Z84.1 Family history of disorders of kidney and ureter
CPT/HCPCS: 36415; 74000; 74177; 80048; 80053; 81003; 82272; 83605; 83690; 85025; 86140; 87040; A9270-GY; G0378; J0360; J0744; J0780; J1170; J1644; J2060; J2405; Q9967

== ENCOUNTER 2018-08-03 14:45 | Emergency (ER) | payer BC ==
[2018-08-03 15:17] VITALS: BP 179/103
--- NOTE | 2018-08-03 16:15 | UC ---
Respiratory Complaint HPI - HPI Summary HPI Summary: 52 y/o female presents to the urgent care c/o productive cough w/ green phlegm since 07/24/2018. Pt reports symptoms started w/ the common cold, however symptoms are getting worse. Yesterday she developed wheezing. Pt states sinus congestion w/ a lot of PND. She has taken Delsym PO w/o any improvement. She hasn't been able to sleep well due to the cough. She has Hx of HTN and has not taken her BP medication today. Pt denies fever, SOB, chest pain, GALE, dizziness, abdominal pain, N/V/D, visual disturbances. - History of Current Complaint Chief Complaint: UCRespiratory Stated Complaint: COUGH Time Seen by Provider: 08/03/18 16:13 Hx Obtained From: Patient Hx Last Menstrual Period: manager audio Onset/Duration: Gradual Onset, Lasting Weeks - 1.5 weeks, Still Present, Worse Since - 2 days w/ wheezing Timing: Intermittent Episodes Severity Initially: Mild Severity Currently: Moderate Pain Intensity: 4 - body aches Pain Scale Used: 0-10 Numeric Character: Cough: Productive, Sputum Description: - green Aggravating Factors: Recumbent Position Alleviating Factors: OTC Meds Associated Signs And Symptoms: Positive: Chills, Wheezing, URI, Nasal Congestion , Sinus Discomfort. Negative: Fever - Risk Factors Pulmonary Embolism Risk Factors: Negative Cardiac Risk Factors: Negative Pseudomonas Risk Factors: Negative Tuberculosis Risk Factors: Negative - Allergies/Home Medications Allergies/Adverse Reactions: Allergies Allergy/AdvReac Type Severity Reaction Status Date / Time hydrocodone Allergy Vomiting Verified 08/03/18 15:17 PMH/Surg Hx/FS Hx/Imm Hx Previously Healthy: Yes Cardiovascular History: Hypertension - Surgical History Surgical History: Yes Surgery Procedure, Year, and Place: Bilateral knee surgery roughly ten yrs. ago here at [facility] [place] TUBAL LIGATION - Family History Known Family History: Positive: Cardiac Disease, Hypertension, Diabetes, Renal Disease, Other - Kidney disease. Family History: NON CONTRIBUTORY - Social History Occupation: Employed Full-time Lives: With Family Alcohol Use: Rare Alcohol Amount: last drink 02/20/17 Substance Use Type: None Smoking Status (MU): Never Smoked Tobacco - Immunization History Most Recent Influenza Vaccination: 2014 Most Recent Tetanus Shot: Pt. states up to date. Most Recent Pneumonia Vaccination: 2016 Review of Systems All Other Systems Reviewed And Are Negative: Yes Constitutional: Positive: Chills, Other - body aches Skin: Positive: Negative Eyes: Positive: Negative ENT: Positive: Nasal Discharge - green, Sinus Congestion, Sinus Pain/Tenderness Respiratory: Positive: Cough - productive w/ phlegm, Other - wheezing Cardiovascular: Positive: Negative Gastrointestinal: Positive: Negative Genitourinary: Positive: Negative Motor: Positive: Negative Neurovascular: Positive: Negative Musculoskeletal: Positive: Negative Neurological: Positive: Negative Psychological: Positive: Negative Is Patient Immunocompromised?: No Physical Exam - Summary Physical Exam Summary: Vital Signs Reviewed: Yes General: well developed, well nourished obese female male sitting in the examining table w/o any apparent distress Eyes: Positive: Conjunctiva Clear - PERRLA, EOMI, fundi grossly normal ENT: Positive: Normal ENT inspection, Hearing grossly normal, Pharynx normal, Nasal congestion - edematous and erythematous nasal mucosa, Nasal drainage - yellowish drainage, TMs normal. Negative: Tonsillar swelling, Tonsillar exudate Neck: Positive: Supple, Nontender, No Lymphadenopathy Respiratory: no orthopnea or dyspnea. Able to speak in full sentences, no retractions or accessory muscle use, no tripod position, stridor, or head bobbing. Positive breath sounds bilaterally. diffuse scattered wheezing and rhonchi on b/L lungs, no crackles or rales. Cardiovascular: Positive: RRR, No Murmur, Pulses Normal, Brisk Capillary Refill Abdomen Description: Positive: Nontender, No Organomegaly, Soft. Negative: CVA Tenderness (R), CVA Tenderness (L) Bowel Sounds: Positive: Present Musculoskeletal Exam: Normal Musculoskeletal: Positive: Strength Intact, ROM Intact, No Edema Neurological Exam: Normal Psychological Exam: Normal Skin Exam: Normal Triage Information Reviewed: Yes Vital Signs: Initial Vital Signs Temp 97.4 F 08/03/18 15:11 Pulse 73 08/03/18 15:11 Resp 16 08/03/18 15:11 BP 179/103 08/03/18 15:11 Pulse Ox 100 08/03/18 15:11 UC Diagnostic Evaluation - Laboratory O2 Sat by Pulse Oximetry: 100 Respiratory Course/Dx - Course Course Of Treatment: 52 y/o female presents to the urgent care c/o productive cough w/ green phlegm since 07/24/2018. Pt reports symptoms started w/ the common cold, however symptoms are getting worse. Yesterday she developed wheezing. Pt states sinus congestion w/ a lot of PND. She has taken Delsym PO w/ o any improvement. She hasn't been able to sleep well due to the cough. She has Hx of HTN and has not taken her BP medication today. Pt denies fever, SOB, chest pain, GALE, dizziness, abdominal pain, N/V/D, visual disturbances. Hx obtained. Hx obtained. Pt w/ B/L lungs scattered wheezing and rhonchi on examination. O2Sat:100%. Chest X-ray ordered: impression: no acute active cardiopulmonary disease observed. Pt given at the clinic Prednisone 60 mg PO and Duoneb treatment. Pt tolerated well medications and her lungs improved. Pt states feeling better. Pt will be treated w/ bronchitis Pt will be tx w/ Rx Doxycycline PO , Prednisone taper dose and Inhaler. Pt given an aerochamber. Strongly advised to f/u with her PCP for further management sicne she may be developing Asthma. She also has elevated BP today, Strongly advised to take her BP medication as soon as she gets home. Also advised to decrease salt in her diet and monitor BP, if it continues to be elevated to f/u with her PCP. Pt understood and agreed with D/C instructions and left the clinic hemodynamically stable. - Differential Dx/Diagnosis Differential Diagnosis/HQI/PQRI: Asthma, Bronchitis, Influenza, Laryngitis, Sinusitis, Other - pneumonia Provider Diagnosis: Bronchitis, Wheezing, Uncontrolled hypertension Discharge - Sign-Out/Discharge Documenting (check all that apply): Patient Departure - d/c home All imaging exams completed and their final reports reviewed: Yes - Discharge Plan Condition: Stable Disposition: HOME Prescriptions: Albuterol HFA INHALER* [Ventolin HFA Inhaler*] 1 - 2 puff INH Q6H PRN #1 mdi PRN Reason: Wheezing Benzonatate CAP* [Tessalon 100 MG CAP*] 100 mg PO TID #21 cap DOXYcycline CAP(*) [DOXYcycline 100MG CAP(*)] 100 mg PO BID #20 cap predniSONE TAB* [Deltasone 20 MG TAB*] 20 mg PO DAILY #8 tab Patient Education Materials: Acute Bronchitis (ED), Low-Sodium Diet (ED), Wheezing (ED) Referrals: Faustina Carroll MD [Primary Care Provider] - 2 Days Additional Instructions: 1-Please take full course of antibiotic to avoid resistance. Take prednisone PO as directed starting tomorrow to alleviate symptoms. First dose given at the clinic today 2-Take Tessalon PO tabs as directed and use the albuterol inhaler to alleviate cough. Increase fluid intake, rest and eat well. 3- If symptoms do not improve or worsen or your develop SOB with fever and severe wheezing please go immediately to the ER further evaluation and treatment. 4- F/u with your PCP in 2-3 days for further management 5- Please take your BP medication as soon as you get home. Your BP is elevated today. please decrease salt in your diet, monitor BP and if it continues to be elevated please f/u with your PCP in 3 days for further management - Billing Disposition and Condition Condition: STABLE Disposition: Home - Attestation Statements Provider Attestation: I was available for consult. This patient was seen by the IZABELA. The patient was not presented to, seen by, or examined by me. -Susy
[2018-08-03] MEDS ORDERED: predniSONE TAB* 20 MG PO ONE (16:31)
[2018-08-03] MEDS ORDERED: Albuterol/Ipratropium NEB.SOL* Albuterol 2.5 MG/Ipratropium 0.5 MG 3 ML INH ONE (16:31)
== END 2018-08-03 17:37 | disposition home or self-care (01) ==
LOC: UCEAST 14:45
DX: J40 Bronchitis, not specified as acute or chronic (principal); R06.2 Wheezing; I10 Essential (primary) hypertension; Z88.5 Allergy status to narcotic agent
CPT/HCPCS: 71046; 99212; A9270-GY; G0463; J7512

== ENCOUNTER 2019-05-14 23:05 | Emergency (ER) | payer BC ==
--- OUTSIDE RECORDS SUMMARY | 2019-05-14 23:29 | XMS REPORT | Summary of Care ---
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 EDT) Note: Hypertension Care Plan Based on the patient's clinical history and according to JNC 8 guidelines target blood pressure goal is less than 140/90. Based on the patient's last blood pressure of BP: 128/88 mmHg the patient is at at goal. As your provider, it is important that I advise you regarding: your current medications and help you with any challenges you may face taking your medications as directed (ex. instructions, cost, side effects, and interactions). Important lifestyle changes: exercise, weight reduction and dietary sodium reduction your clinical goals and how you can achieve success: weight reduction, exercise plan and diet improvements medication management: N/A diet only patient education/self-management tools provided: Yes To successfully manage my Hypertension I will: monitor my blood pressure daily, understanding that my goal is less than 140/ 90 per my healthcare provider's recommendation. I will schedule an appointment with my provider if consistent abnormal readings greater than 160/100. take medications every day as prescribed by my healthcare provider and if unable to take them I will discuss with my provider. monitor for symptoms of chest pain, chest tightness/pressure, irregular heartbeat, persistent dizziness, radiating arm pain, and neck or jaw pain. If any of these symptoms are noticed I will seek medical attention immediately by calling 911 exercise/walk 30 minutes 5 day(s) per week. If I experience chest pain, chest tightness, or shortness of breath, I will seek medical attention immediately. follow a diet rich in fruits, vegetables, and low-fat dairy products with reduced content of saturated & total fat. I will reduce my sodium intake daily. An example is the DASH diet. To obtain more information please refer to the DASH Eating Plan listed in Educational Resources. record my blood pressure results. GoPollGo is safe and secure way for you to do this in your medical record online. try to obtain an ideal body weight. My recent weight was Weight: 292 lb ( 132.45 kg). My weight loss goal for my next office visit is 285. limit alcohol consumption. For men two drinks per day and women one drink per day. if currently smoking, will discuss how to quit smoking with my healthcare provider and work towards quitting. Educational Resources: National Heart, Lung, & Blood [place] http://nhlbi.nih.gov/hbp/index.html The DASH Diet Eating Plan http://www.nhlbi.nih.gov/health/health-topics/ topics/dash/ Academy of Nutrition & DIetetics http://eatright.org National Smoking Cessation Site http://smokefree.gov Blood Pressure < Blood Pressure 150/110 (05/13/2019 No Christina Dawkins RN 140/90 10:06 AM EDT) Note: This is an individualized treatment (blood pressure) goal for Rosio Fagan: Displayed above (on the left) is your goal for blood pressure control. Your most recent blood pressure is also shown above, on the right. You should try to achieve blood pressures that are lower than your goal listed above (on the left). Weight loss vs. 18 mo Lifestyle 43.3 (05/13/2019 10:06 AM No Veronika Dawkins, ARA max (lbs) >= 10 EDT) Note: This is an individualized lifestyle goal for Rosio Fagan: Your body mass index (BMI) is more than 30. You should lose weight. A reasonable starting goal is to lose 10 pounds. Displayed above is how many pounds you have lost thus far towards your 10 pound weight loss goal. Take all prescribed medications as Self-management No Christina Dawkins RN directed Note: This is an individualized self-management goal for Rosio Fagan: Please take all prescribed medications as directed. 1. Do not skip doses. If you cannot afford your medications, talk with your doctor. 2. Use a pill reminder system such as a pill box if needed. Your pharmacist can help you with this. 3. Contact your Pharmacy 5 days before your medication runs out. If you cannot take your medications for any reasons, talk with your doctor. 4. Please bring all of your medication bottles and inhalers (or a list of all your medications/inhalers) with you to every visit. Potential barriers to meeting all of your care plan goals will continue to be addressed on an ongoing basis. documented as of this encounter Results Not on filedocumented in this encounter Visit Diagnoses Diagnosis Essential hypertension - Primary Unspecified essential hypertension Dyslipidemia Other and unspecified hyperlipidemia Migraine without status migrainosus, not intractable, unspecified migraine type documented in this encounter Guarantor Name Account Type Relation to Date of Phone Billing Patient Address Rosio Fagan Personal/Family 1965 [address] [phone] [place], [place] (Work) [id number] documented as of this encounter
--- NOTE | 2019-05-15 01:03 | ED ---
Shortness of Breath - HPI Summary HPI Summary: 53 year old F presenting to [facility] accompanied by family member complains of shortness of breath and sharp back pain rated 10/10 in severity since getting up from the couch to use the bathroom yesterday 05/14/19 evening. Patient additionally complains of right-sided chest pain radiating to her back with associated nausea. Patient denies fever and cough. Symptoms aggravated by deep breathing. Symptoms alleviated by nothing. Patient has not treated her symptoms with any medications. Family member states patient received the influenza vaccination 2 days ago. Patient states she had a pulmonary emboli a few years ago after having knee surgery. Denies recent surgery. Denies long travel. PMHX: HTN for which she takes lisinopril 10 mg, migraines for which she takes Topamax. Patient states she takes amitriptyline and potassium. Denies smoking and using drugs. Reports drinking alcohol rarely. - History of Current Complaint Chief Complaint: EDShortnessOfBreath Time Seen by Provider: 05/15/19 00:51 Hx Obtained From: Patient Onset/Duration: Lasting Hours, Still Present Timing: Constant Current Severity: Severe Aggravating Factors: Deep Breaths Alleviating Factors: Nothing - Allergy/Home Medications Allergies/Adverse Reactions: Allergies Allergy/AdvReac Type Severity Reaction Status Date / Time hydrocodone Allergy Vomiting Verified 08/03/18 15:17 PMH/Surg Hx/FS Hx/Imm Hx Endocrine/Hematology History: Denies: Hx Diabetes, Hx Thyroid Disease Cardiovascular History: Reports: Hx Hypertension Respiratory History: Reports: Hx Pneumonia, Hx Pulmonary Embolism Denies: Hx Asthma, Hx Chronic Obstructive Pulmonary Disease (COPD) GI History: Reports: Other GI Disorders - diverticulitis Denies: Hx Ulcer History: Denies: Hx Dialysis, Hx Renal Disease Musculoskeletal History: Denies: Hx Arthritis, Hx Rheumatoid Arthritis, Hx Osteoporosis Sensory History: Reports: Hx Contacts or Glasses Denies: Hx Hearing Aid Opthamlomology History: Reports: Hx Contacts or Glasses Neurological History: Reports: Hx Migraine, Other Neuro Impairments/Disorders - MIGRAINES - Surgical History Surgery Procedure, Year, and Place: Bilateral knee surgery roughly ten yrs. ago here at [facility] TUBAL LIGATION Hx Anesthesia Reactions: No Infectious Disease History: No Infectious Disease History: Denies: Hx Hepatitis, Hx Human Immunodeficiency Virus (HIV), History Other Infectious Disease, Traveled Outside the [place] in Last 30 Days - Family History Known Family History: Positive: Cardiac Disease, Hypertension, Diabetes, Renal Disease - Social History Alcohol Use: Rare Hx Substance Use: No Substance Use Type: Reports: None Hx Tobacco Use: No Smoking Status (MU): Never Smoked Tobacco Review of Systems - ROS Summary Review of Systems Summary: Home Medications Medication Instructions Recorded Confirmed Type SUMAtriptan TAB* [Imitrex TAB*] 100 mg PO Q6HR PRN 10/12/13 08/03/18 History Amitriptyline TAB* [Elavil TAB*] 50 mg PO BEDTIME PRN #0 02/24/17 05/15/19 Rx Lisinopril TAB* [Prinivil TAB 10 20 mg PO BID #60 tab 02/24/17 05/15/19 Rx MG*] Metoprolol Tartrate TAB* 25 mg PO BID #60 tab 02/24/17 08/03/18 Rx [Lopressor TAB*] Ibuprofen TAB* [Motrin TAB* 600 MG] 600 mg PO Q6H PRN #30 tab 03/13/17 05/15/19 Rx Polyethylene Glycol 3350* 17 gm PO 0800,2100 #30 packet 03/13/17 05/15/19 Rx [Miralax*] predniSONE TAB* [Deltasone 20 MG 20 mg PO DAILY #8 tab 08/03/18 Rx TAB*] Negative: Fever Positive: Chest Pain Positive: Shortness Of Breath. Negative: Cough Positive: Nausea Positive: Other - sharp back pain All Other Systems Reviewed And Are Negative: Yes Physical Exam - Summary Physical Exam Summary: General: Obese FEMALE. No acute distress. HEENT: Normocephalic, Atraumatic. Eyes: Conjuctiva normal, PERRL. Ears: TMs within normal limits. Nares: (-) discharge, (-) erythema. Oropharynx: Clear, mucous membranes moist, (-) exudates. Neck: Soft, FROM, (-) lymphadenopathy, (-) thyromegaly, (-) JVD. Cardiovascular: Normal sinus rhythm, (-) murmur. Lungs: Shallow breath sounds Abdomen: Soft, non-tender, non-distended, (-) organomegaly, normal bowel sounds. Back: Point tenderness along medial scapula on the right, Extremities: No edema. Skin: Warm, dry, (-) rash. Neuro: Alert and oriented x3, no focal deficits. Psychiatric: Mood normal, affect normal. Triage Information Reviewed: Yes Vital Signs On Initial Exam: Initial Vitals Temp Pulse Resp BP Pulse Ox 98 F 65 20 147/114 99 05/14/19 23:09 05/14/19 23:09 05/14/19 23:09 05/14/19 23:09 05/14/19 23:09 Vital Signs Reviewed: Yes Diagnostics - Vital Signs Vital Signs Temp Pulse Resp BP Pulse Ox 05/14/19 23:09 98 F 65 20 147/114 99 - Laboratory Result Diagrams: 05/15/19 01:41 05/15/19 01:41 Lab Statement: Any lab studies that have been ordered have been reviewed, and results considered in the medical decision making process. - Radiology CXR Radiology Interpretation Completed By: ED Physician Summary of Radiographic Findings: No acute process. Pending official report - EKG 2319 Cardiac Rate: NL - 65 BPM EKG Rhythm: Sinus Rhythm Summary of EKG Findings: EKG at 23:19 reveals normal sinus rhythm with rate of 65 BPM, no acute changes, no ischemic changes. Non STEMI. This EKG was reviewed and interpreted by Dr. Chris. Re-Evaluation - Re-Evaluation First Eval Re-Evaluation Time: 02:17 Comment: I have discussed results with the patient and symptoms have resolved. Discussed symptoms that warrant immediate return to ED. Course/Dx - Course Course Of Treatment: 53 year old F presenting to [facility] accompanied by family member complains of shortness of breath and sharp back pain rated 10/10 in severity since getting up from the couch to use the bathroom yesterday 05/14/19 evening. Patient additionally complains of right-sided chest pain radiating to her back with associated nausea. Patient denies fever and cough. Symptoms aggravated by deep breathing. Family member states patient received the influenza vaccination 2 days ago. Patient states she had a pulmonary emboli a few years ago after having knee surgery. Denies recent surgery. Denies long travel. Physical exam findings: an obese female, point tenderness along medial scapula on the right, shallow breath sounds. EKG at 23:19 reveals normal sinus rhythm with rate of 65 BPM, no acute changes, no ischemic changes. Non STEMI. This EKG was reviewed and interpreted by Dr. Chris. CXR shows no acute process. Bloodwork results with no significant abnormalities except for WBC 13.8, absolute monos 1.4, absolute eos 0.7,. In the ED course, the patient was given Toradol 30 mg IM x2. The patient feels better and would like to go home. Patient will be discharged home with follow up from her primary care provider in 3 days. Patient was instructed to return to Emergency Department for new or worsening symptoms. Patient understands and is agreeable to this plan. - Diagnoses Provider Diagnoses: Muscle spasm of back, Shortness of breath Discharge ED - Sign-Out/Discharge Documenting (check all that apply): Patient Departure - Discharge Patient Received Moderate/Deep Sedation with Procedure: No - Discharge Plan Condition: Stable Disposition: HOME Patient Education Materials: Muscle Spasm (ED), Shortness of Breath (ED) Referrals: Faustina Carroll MD [Primary Care Provider] - 3 Days Additional Instructions: Please follow up with your primary care physician within 3 days. Please return to Emergency Department for any new or worsening symptoms. - Billing Disposition and Condition Condition: STABLE Disposition: Home - Attestation Statements Document Initiated by Annalisa: Yes Documenting Scribe: Ann Bender Provider For Whom Annalisa is Documenting (Include Credential): Debra Chris MD Scribe Attestation: IAnn, scribed for Debra Chris MD on 05/15/19 at 0513. Scribe Documentation Reviewed: Yes Provider Attestation: The documentation as recorded by the Ann rutledge accurately reflects the service I personally performed and the decisions made by me, Debra Chris MD Status of Scribe Document: Viewed
[2019-05-15] MEDS ORDERED: Ketorolac INJ* 30 MG/ML 1 ML VIAL IM ONE ×2 (01:06→02:04)
[2019-05-15 01:58] LABS: ABS Basophils 0.1 10^3/ul (0-0.2); ABS Eosinophils 0.7 10^3/ul (0-0.6); ABS Lymphocytes 4.5 10^3/ul (1.0-4.8); ABS Monocytes 1.4 10^3/ul (0-0.8); ABS Neutrophils 7.1 10^3/ul (1.5-7.7); Eosinophil % 4.8 %; Hematocrit 39 % (35-47); Hemoglobin 12.7 g/dL (12.0-16.0); Lymphocyte % 32.6 %; Mean Corpuscular HGB Conc 33 g/dL (31-36); Mean Corpuscular Hemoglobin 30 pg (27-31); Mean Corpuscular Volume 91 fL (80-97); Red Blood Count 4.27 10^6 /uL (3.70-4.87); Red Cell Distribution Width 15 % (10-15); White Blood Count 13.8 10^3/uL (3.5-10.8)
[2019-05-15 02:27] VITALS: BP 172/111
[2019-05-15 02:34] LABS: Albumin 4.2 g/dL (3.2-5.2); CO2 Carbon Dioxide 24 mmol/L (22-32); Calcium 9.5 mg/dL (8.6-10.3); Chloride 109 mmol/L (101-111); Sodium 140 mmol/L (135-145)
[2019-05-15 02:39] LABS: ALT 15 U/L (7-52); Albumin/Globulin Ratio 1.7 (1-3); Alkaline Phosphatase 96 U/L (34-104); BUN/Creatinine Ratio 15.5 (8-20); Blood Urea Nitrogen 15 mg/dL (6-24); EGFR Non-African American 60.3 (>60); Globulin 2.5 g/dL (2-4); Glucose 102 mg/dL (70-100); Total Protein 6.7 g/dL (6.4-8.9)
[2019-05-15 02:40] LABS: Anion Gap 7 mmol/L (2-11)
== END 2019-05-15 02:27 | disposition home or self-care (01) ==
LOC: ED 23:05
DX: R06.02 Shortness of breath (principal); M62.830 Muscle spasm of back; I10 Essential (primary) hypertension; G43.909 Migraine, unspecified, not intractable, without status migrainosus; Z79.899 Other long term (current) drug therapy; Z88.5 Allergy status to narcotic agent
CPT/HCPCS: 36415; 71045; 80053; 83605; 84484; 85025; 85379; 93005; 96372; 99282; J1885

== ENCOUNTER 2021-12-05 22:07 | Observation (INO) ==
[2021-12-05] MEDS ORDERED: Lactated Ringers 1000 ml BAG 1,000 ML IV ONE (22:19)
[2021-12-05 22:47] LABS: ABS Lymphocytes 2.1 10^3/ul (1.0-4.8); ABS Monocytes 1.4 10^3/ul (0-0.8); ABS Neutrophils 14.8 10^3/ul (1.5-7.7); Hematocrit 39 % (35-47); Hemoglobin 12.6 g/dL (12.0-16.0); Lymphocyte % 11.4 %; Mean Corpuscular HGB Conc 32 g/dL (31-36); Mean Corpuscular Hemoglobin 28 pg (27-31); Mean Corpuscular Volume 85 fL (80-97); Mean Platelet Volume 8.4 fL (7.4-10.4); Platelet Count 374 10^3/uL (150-450); Red Blood Count 4.59 10^6 /uL (3.70-4.87); Red Cell Distribution Width 15 % (10-15); White Blood Count 18.3 10^3/uL (3.5-10.8)
[2021-12-05 23:06] LABS: Albumin 4.4 g/dL (3.2-5.2); Albumin/Globulin Ratio 1.5 (1-3); Calcium 9.9 mg/dL (8.6-10.3); Globulin 2.9 g/dL (2-4); Potassium 3.3 mmol/L (3.5-5.0); Total Bilirubin 0.5 mg/dL (0.2-1.0); Total Protein 7.3 g/dL (6.4-8.9); eGFR CKD-EPI 59.7 (>60)
[2021-12-05] MEDS ORDERED: hydrALAZINE 20 mg/ml 1 ML Vial IV IV SLOW PU ONE (23:59)
[2021-12-06] MEDS: Ondansetron 4 mg VIAL 2 MG/ML 2 ml VIAL IV PRN ×4 (00:57→17:05)
[2021-12-06] MEDS: Enoxaparin 40 MG/0.4 ML SYR SUBCUT SCH ×2 (00:58→20:13)
[2021-12-06 02:25] LABS: Magnesium 2.3 mg/dL (1.9-2.7)
[2021-12-06] MEDS ORDERED: HYDROmorphone 0.5 MG/0.5 ML SYRINGE IV SLOW PU ONE (04:34)
[2021-12-06 06:22] LABS: Hematocrit 37 % (35-47); Hemoglobin 12.1 g/dL (12.0-16.0); Mean Corpuscular HGB Conc 33 g/dL (31-36); Mean Corpuscular Hemoglobin 28 pg (27-31); Mean Corpuscular Volume 84 fL (80-97); Mean Platelet Volume 8.4 fL (7.4-10.4); Platelet Count 353 10^3/uL (150-450); Red Cell Distribution Width 14 % (10-15); White Blood Count 19.2 10^3/uL (3.5-10.8)
[2021-12-06 06:27] LABS: ABS Lymphocytes 2.4 10^3/ul (1.0-4.8); ABS Neutrophils 14.8 10^3/ul (1.5-7.7); Lymphocyte % 12.7 %
[2021-12-06 06:52] LABS: Albumin/Globulin Ratio 1.4 (1-3); Calcium 9.5 mg/dL (8.6-10.3); Globulin 2.8 g/dL (2-4); Total Bilirubin 0.5 mg/dL (0.2-1.0); Total Protein 6.8 g/dL (6.4-8.9); eGFR CKD-EPI 70.3 (>60)
[2021-12-06] MEDS ORDERED: Potassium Chlor 20 meq TAB.ER PO ONE (08:15)
[2021-12-06 09:01] LABS: C Reactive Protein 1.86 mg/L (<8.01)
[2021-12-06] MEDS ORDERED: Lactated Ringers 1000 ml BAG 1,000 ML IV ONE ×2 (09:49→10:48)
[2021-12-06] MEDS ORDERED: Lactated Ringers 1000 ml BAG 1,000 ML IV SCH (10:00)
[2021-12-06] MEDS: Metoclopramide 5 MG/ML VIAL (10 mg) IV PRN ×2 (10:11→19:48)
[2021-12-06] MEDS: KCL 20 MEQ/100 ML IVPREMIX 20 MEQ/100 ML BAG IV SCH ×3 (10:22→20:28)
[2021-12-06] MEDS: Lactated Ringers 1000 ml BAG 1,000 ML IV SCH ×2 (11:43→23:17)
[2021-12-06] MEDS ORDERED: Prochlorperazine 5 mg/ml 2 ml VIAL (10 mg) IV ONE (14:00)
[2021-12-06] MEDS ORDERED: KCL 20 MEQ/100 ML IVPREMIX 20 MEQ/100 ML BAG IV ONE (20:30)
[2021-12-07] MEDS: Ondansetron 4 mg VIAL 2 MG/ML 2 ml VIAL IV PRN ×2 (00:04→06:05)
[2021-12-07] MEDS: Metoclopramide 5 MG/ML VIAL (10 mg) IV PRN (02:14)
[2021-12-07 06:29] LABS: Hematocrit 40 % (35-47); Hemoglobin 13.5 g/dL (12.0-16.0); Mean Corpuscular HGB Conc 34 g/dL (31-36); Mean Corpuscular Hemoglobin 28 pg (27-31); Mean Corpuscular Volume 84 fL (80-97); Platelet Count 340 10^3/uL (150-450); Red Blood Count 4.74 10^6 /uL (3.70-4.87); Red Cell Distribution Width 15 % (10-15); White Blood Count 14.6 10^3/uL (3.5-10.8)
[2021-12-07 06:32] LABS: ABS Monocytes 1.7 10^3/ul (0-0.8); ABS Neutrophils 9.9 10^3/ul (1.5-7.7); Lymphocyte % 20.8 %; Nucleated Red Blood Cells % 0.1
[2021-12-07 06:51] LABS: Albumin 3.8 g/dL (3.2-5.2); Albumin/Globulin Ratio 1.3 (1-3); Calcium 9.6 mg/dL (8.6-10.3); Potassium 3.4 mmol/L (3.5-5.0); Total Bilirubin 0.6 mg/dL (0.2-1.0); Total Protein 6.8 g/dL (6.4-8.9)
[2021-12-07 07:12] LABS: Magnesium 2.1 mg/dL (1.9-2.7)
[2021-12-07 08:16] VITALS: BP 154/108
== END 2021-12-07 09:55 | disposition home or self-care (01) ==
LOC: ED 22:07 → EDHOLD 22:07 → SUATTDRO 12-06 → MED 12-06 05:13
PROVIDERS: ADMIT Internal Medicine; ATTEND Hospitalist

== ENCOUNTER 2023-02-22 16:21 | Observation (INO) ==
[2023-02-22] MEDS ORDERED: Lactated Ringers 1000 ml BAG 1,000 ML IV ONE (16:45)
[2023-02-22] MEDS ORDERED: Ondansetron 4 mg VIAL 2 MG/ML 2 ml VIAL IV ONE ×3 (16:45→22:49)
[2023-02-22] MEDS ORDERED: Prochlorperazine 5 mg/ml 2 ml VIAL (10 mg) IV ONE (16:46)
[2023-02-22] MEDS ORDERED: Morphine 4 MG/ML VIAL (1 ml) IV ONE ×3 (16:46→22:49)
[2023-02-22 17:15] LABS: ABS Basophils 0.1 10^3/uL (0.0-0.1); ABS Lymphocytes 1.4 10^3/uL (1.0-4.8); ABS Monocytes 0.6 10^3/uL (0.0-0.9); ABS Neutrophils 10.7 10^3/uL (1.5-7.6); ABS Nucleated RBC 0.01 10^3/ul; Eosinophil % 0.1 %; Hematocrit 39.4 % (35-45); Lymphocyte % 10.9 %; Mean Corpuscular Hemoglobin 27.2 pg (27-33); Mean Corpuscular Hgb Conc 32.9 g/dL (31-36); Mean Corpuscular Volume 82.8 fL (80-97); Mean Platelet Volume 7.8 fL (7.5-11.2); Platelet Count 391 10^3/uL (150-450); Red Blood Count 4.76 10^6/uL (3.63-4.92); Red Cell Distribution Width 14.6 % (12-17); White Blood Count 12.9 10^3/uL (3.8-11.8)
[2023-02-22 17:21] LABS: INR 1.09 (0.88-1.18)
[2023-02-22 17:39] LABS: Albumin 4.7 g/dL (3.2-5.2); Albumin/Globulin Ratio 1.4 (1-3); Calcium 10.5 mg/dL (8.6-10.3); Creatinine, Serum 1.22 mg/dL (0.51-0.95); Globulin 3.4 g/dL (2-4); Potassium 3.5 mmol/L (3.5-5.0); Total Bilirubin 0.7 mg/dL (0.2-1.0); Total Protein 8.1 g/dL (6.4-8.9); eGFR CKD-EPI 52.1 (>60)
[2023-02-22] MEDS ORDERED: Iodixanol (CONTRAST) 320 MG/ML 100 ML SDV IV ONE (17:46)
[2023-02-22 18:55] LABS: High Sensitivity Troponin 1 Hr 10 pg/mL (<15)
[2023-02-22] MEDS ORDERED: Acetaminophen IV 1 GM/100ML 1,000 MG/100 ML BAG IV ONE (23:15)
[2023-02-23] MEDS ORDERED: Haloperidol 5 mg/ml SDV IV/IM 5 MG/ML AMP IV SLOW PU ONE (00:02)
[2023-02-23] MEDS ORDERED: Lactated Ringers 1000 ml BAG 1,000 ML IV ONE (00:04)
[2023-02-23] MEDS ORDERED: Droperidol 5 MG/2 ML 2 ML VIAL IV ONE (00:04)
[2023-02-23] MEDS ORDERED: Senna TAB 8.6 mg TAB PO PRN (00:20)
[2023-02-23] MEDS ORDERED: Polyethylene Glycol 3350 17 GM PACKET PO PRN (00:20)
[2023-02-23] MEDS ORDERED: Prochlorperazine 5 mg/ml 2 ml VIAL (10 mg) IV PRN (00:23)
[2023-02-23] MEDS ORDERED: SUMAtriptan Subcut 6 MG/0.5 ML VIAL SUBCUT PRN (01:27)
[2023-02-23] MEDS: NS 0.9% 1000 ml BAG 1,000 ML IV SCH ×2 (01:30→11:23)
[2023-02-23] MEDS: Acetaminophen IV 1 GM/100ML 1,000 MG/100 ML BAG IV SCH ×2 (01:36→08:39)
[2023-02-23 01:58] LABS: Magnesium 1.7 mg/dL (1.9-2.7)
[2023-02-23] MEDS: Enalaprilat IV 1.25 mg/ml 1 ml VIAL (1.25 MG) IV SCH ×2 (03:45→08:38)
[2023-02-23] MEDS: Prochlorperazine 5 mg/ml 2 ml VIAL (10 mg) IV PRN ×2 (03:49→08:38)
[2023-02-23] MEDS: Morphine 2 MG/ML SYRINGE IV PRN ×2 (05:22→10:47)
[2023-02-23] MEDS ORDERED: Magnesium Sulfate IV 3 GM in NS 0.9% 100 ml BAG 100 ML IVPB ONE (05:58)
[2023-02-23 07:22] LABS: ABS Lymphocytes 1.8 10^3/uL (1.0-4.8); ABS Monocytes 1.4 10^3/uL (0.0-0.9); ABS Neutrophils 11.3 10^3/uL (1.5-7.6); Hematocrit 37.7 % (35-45); Hemoglobin 12.5 g/dL (11.5-14.3); Lymphocyte % 12.3 %; Mean Corpuscular Hemoglobin 27.8 pg (27-33); Mean Corpuscular Hgb Conc 33.1 g/dL (31-36); Mean Corpuscular Volume 84.1 fL (80-97); Mean Platelet Volume 7.6 fL (7.5-11.2); Platelet Count 330 10^3/uL (150-450); Red Blood Count 4.49 10^6/uL (3.63-4.92); Red Cell Distribution Width 14.7 % (12-17); White Blood Count 14.6 10^3/uL (3.8-11.8)
[2023-02-23] MEDS ORDERED: Piperacillin/Tazobac ADVAN 3.375 GM in NS 0.9% 100 ml BAG 100 ML IV ONE (07:50)
[2023-02-23] MEDS ORDERED: Zosyn per Pharmacy NOTE FOLLOW UP SCH (08:00)
[2023-02-23 08:05] LABS: Magnesium 2.1 mg/dL (1.9-2.7); Potassium 3.5 mmol/L (3.5-5.0)
[2023-02-23 08:10] LABS: Creatinine, Serum 1.18 mg/dL (0.51-0.95); eGFR CKD-EPI 54.2 (>60)
[2023-02-23] MEDS ORDERED: Lidocaine 2% PF 5 ML VIAL ONE (12:57)
[2023-02-23] MEDS ORDERED: Propofol 10 MG/ML 20 ML BTL ONE (12:57)
[2023-02-23] MEDS ORDERED: fentaNYL 100 mcg/2 ml 50 MCG/ML VIAL ONE ×5 (12:57→16:24)
[2023-02-23] MEDS ORDERED: ZOSYN 3.375 GM Q8H per EXTENDED INFUSION IV SCH (13:00)
[2023-02-23] MEDS ORDERED: Rocuronium 50 mg VIAL 10 mg/ml 5 ml VIAL (50 mg) ONE (13:01)
[2023-02-23] MEDS ORDERED: Midazolam 2 mg/2 ml VIAL 1 mg/ml 2 ml VIAL (2 mg) ONE (13:02)
[2023-02-23] MEDS ORDERED: Ondansetron 4 mg VIAL 2 MG/ML 2 ml VIAL ONE ×2 (13:24→16:48)
[2023-02-23] MEDS ORDERED: Scopolamine 1 mg/72hr PATCH ONE (13:28)
[2023-02-23] MEDS ORDERED: Dexamethasone IV 4 MG/ML VIAL 1 ml VIAL ONE (13:31)
[2023-02-23] MEDS ORDERED: Bupivacaine 0.5% SDV PF 30ML VIAL ONE (13:34)
[2023-02-23] MEDS ORDERED: HYDROmorphone 1 MG/1 ML SYRINGE IV PRN (13:41)
[2023-02-23] MEDS ORDERED: Naloxone 0.4 mg VIAL 0.4 mg/ml 1 ml VIAL IV PRN (13:41)
[2023-02-23] MEDS ORDERED: Ondansetron 4 mg VIAL 2 MG/ML 2 ml VIAL IV PRN (13:41)
[2023-02-23] MEDS ORDERED: Piperacillin/Tazobac 3.375 GM BAG ONE (13:43)
[2023-02-23] MEDS ORDERED: Succinylcholine 200 mg VIAL 20 mg/ml 10 ml VIAL (200 mg) ONE (13:57)
[2023-02-23] MEDS: fentaNYL 100 mcg/2 ml 50 MCG/ML VIAL IV PRN ×4 (16:11→16:30)
[2023-02-23 16:28] VITALS: BP 165/107
[2023-02-23] MEDS ORDERED: Magnesium Hydroxide LIQ 30 ML UDC PO SCH (21:00)
[2023-02-23] MEDS ORDERED: Senna TAB 8.6 mg TAB PO SCH (21:00)
[2023-02-24] MEDS ORDERED: Polyethylene Glycol 3350 17 GM PACKET PO SCH (09:00)
== END 2023-02-23 16:58 | disposition home or self-care (01) ==
LOC: ED 16:21 → EDHOLD 02-23 00:20 → SUATTDRO 02-23 00:20 → INTOOBSV 02-23 00:20 → MED 02-23 04:51
PROVIDERS: ADMIT Student in an Organized Health Care Education/Training Program; ATTEND Internal Medicine

== ENCOUNTER 2023-03-03 09:55 | Observation (INO) ==
[2023-03-03] MEDS ORDERED: Ondansetron 4 mg VIAL 2 MG/ML 2 ml VIAL IV ONE (14:06)
[2023-03-03] MEDS ORDERED: Lactated Ringers 1000 ml BAG 1,000 ML IV ONE (14:06)
[2023-03-03 14:49] LABS: Hemoglobin 11.5 g/dL (11.5-14.3); Mean Corpuscular Hemoglobin 27.6 pg (27-33); Mean Corpuscular Hgb Conc 32.8 g/dL (31-36); Mean Corpuscular Volume 84.1 fL (80-97); Mean Platelet Volume 7.5 fL (7.5-11.2); Platelet Count 377 10^3/uL (150-450); Red Blood Count 4.16 10^6/uL (3.63-4.92); Red Cell Distribution Width 14.9 % (12-17); White Blood Count 15.9 10^3/uL (3.8-11.8)
[2023-03-03 15:30] LABS: ABS Basophils 0.1 10^3/uL (0.0-0.1); ABS Eosinophils 0.2 10^3/uL (0.0-0.5); ABS Neutrophils 10.6 10^3/uL (1.5-7.6); ABS Nucleated RBC 0.01 10^3/ul; Eosinophil % 1.1 %; Lymphocyte % 18.8 %
[2023-03-03 15:35] LABS: Albumin/Globulin Ratio 1.3 (1-3); C Reactive Protein 52.09 mg/L (<8.01); Calcium 9.4 mg/dL (8.6-10.3); Creatinine, Serum 1.03 mg/dL (0.51-0.95); Magnesium 2.2 mg/dL (1.9-2.7); Total Bilirubin 1.4 mg/dL (0.2-1.0); eGFR CKD-EPI 63.8 (>60)
[2023-03-03 15:38] LABS: Potassium 2.5 mmol/L (3.5-5.0)
[2023-03-03] MEDS ORDERED: KCL 20 MEQ/100 ML IVPREMIX 20 MEQ/100 ML BAG IV ONE (15:38)
[2023-03-03 16:35] LABS: High Sensitivity Troponin 1 Hr 6 pg/mL (<15)
[2023-03-03] MEDS ORDERED: Iohexol 350 (CONTRAST) 500 ML MDV IV ONE (17:04)
[2023-03-03] MEDS ORDERED: Heparin DRIP 25,000 UNITS BAG 25,000 UNITS/500 ML BAG IV SCH (17:30)
[2023-03-03] MEDS ORDERED: KCL 20 MEQ/100 ML IVPREMIX 20 MEQ/100 ML BAG IV SCH (18:00)
[2023-03-03] MEDS ORDERED: Heparin 5000 UNITS/ML 1 mL VIAL IV SCH (18:00)
[2023-03-03] MEDS ORDERED: Acetaminophen IV 1 GM/100ML 1,000 MG/100 ML BAG IV PRN (18:41)
[2023-03-03 18:44] LABS: Direct Bilirubin 0.3 mg/dL (0.03-0.18); Indirect Bilirubin 1.1 mg/dL (0.3-1.0)
[2023-03-03] MEDS ORDERED: Potassium Chlor 20 meq TAB.ER PO ONE ×2 (18:45→22:00)
[2023-03-04 00:36] LABS: Calcium 8.8 mg/dL (8.6-10.3); Creatinine, Serum 0.87 mg/dL (0.51-0.95); eGFR CKD-EPI 78.1 (>60)
[2023-03-04 00:45] LABS: Potassium 2.6 mmol/L (3.5-5.0)
[2023-03-04] MEDS ORDERED: Potassium Chlor 20 meq TAB.ER PO ONE ×3 (00:52→16:08)
[2023-03-04 03:10] LABS: Hepatitis B Surface Antigen Nonreactive (Nonreactive)
[2023-03-04 03:15] LABS: Hepatitis A Ab IgM Negative (Negative)
[2023-03-04 03:16] LABS: Hepatitis B Core IgM Nonreactive (Nonreactive)
[2023-03-04 03:27] LABS: Hepatitis C Antibody Negative (Negative)
[2023-03-04] MEDS ORDERED: KCL 20 MEQ/100 ML IVPREMIX 20 MEQ/100 ML BAG IV ONE (07:08)
[2023-03-04 08:07] LABS: Hematocrit 33.4 % (35-45); Mean Corpuscular Hemoglobin 27.8 pg (27-33); Mean Corpuscular Volume 84.1 fL (80-97); Mean Platelet Volume 7.5 fL (7.5-11.2); Platelet Count 375 10^3/uL (150-450); Red Blood Count 3.97 10^6/uL (3.63-4.92); Red Cell Distribution Width 15.3 % (12-17); White Blood Count 14.3 10^3/uL (3.8-11.8)
[2023-03-04 08:24] LABS: Albumin 3.7 g/dL (3.2-5.2); Total Bilirubin 1.2 mg/dL (0.2-1.0)
[2023-03-04 08:30] LABS: Albumin/Globulin Ratio 1.2 (1-3); Creatinine, Serum 0.93 mg/dL (0.51-0.95); Total Protein 6.7 g/dL (6.4-8.9); eGFR CKD-EPI 72.1 (>60)
[2023-03-04 08:32] LABS: ABS Basophils 0.1 10^3/uL (0.0-0.1); ABS Eosinophils 0.2 10^3/uL (0.0-0.5); ABS Lymphocytes 4.5 10^3/uL (1.0-4.8); ABS Monocytes 1.6 10^3/uL (0.0-0.9); ABS Neutrophils 7.9 10^3/uL (1.5-7.6); Eosinophil % 1.6 %; Lymphocyte % 31.7 %
[2023-03-04] MEDS ORDERED: Ondansetron 4 mg VIAL 2 MG/ML 2 ml VIAL IV PRN (08:40)
[2023-03-04 09:01] LABS: Potassium 3.1 mmol/L (3.5-5.0)
[2023-03-04] MEDS ORDERED: Polyethylene Glycol 3350 17 GM PACKET PO ONE (14:16)
[2023-03-04 15:52] VITALS: BP 149/116
[2023-03-04 16:05] LABS: Calcium 9.5 mg/dL (8.6-10.3); Creatinine, Serum 1.03 mg/dL (0.51-0.95); Potassium 3.4 mmol/L (3.5-5.0); eGFR CKD-EPI 63.8 (>60)
== END 2023-03-04 18:15 | disposition home or self-care (01) ==
LOC: EDHOLD 09:55 → ED 09:55 → SUATTDRO 17:47 → EDHOLD 20:56 → MEDTELE 22:37
PROVIDERS: ADMIT Internal Medicine; ATTEND Hospitalist

== ENCOUNTER 2023-03-28 12:41 | Observation (INO) ==
[2023-03-28] MEDS ORDERED: LACTATED RINGERS IV ONE (13:32)
[2023-03-28 14:54] LABS: Hematocrit 37.3 % (35-45); Hemoglobin 12.5 g/dL (11.5-14.3); Mean Corpuscular Hemoglobin 28.8 pg (27-33); Mean Corpuscular Hgb Conc 33.5 g/dL (31-36); Mean Corpuscular Volume 85.9 fL (80-97); Mean Platelet Volume 7.1 fL (7.5-11.2); Platelet Count 360 10^3/uL (150-450); Red Blood Count 4.34 10^6/uL (3.63-4.92); Red Cell Distribution Width 17.2 % (12-17); White Blood Count 15.8 10^3/uL (3.8-11.8)
[2023-03-28 14:56] LABS: ABS Basophils 0.1 10^3/uL (0.0-0.1); ABS Eosinophils 0.1 10^3/uL (0.0-0.5); ABS Lymphocytes 3.1 10^3/uL (1.0-4.8); ABS Monocytes 2.2 10^3/uL (0.0-0.9); ABS Neutrophils 10.4 10^3/uL (1.5-7.6); Eosinophil % 0.6 %; Lymphocyte % 19.3 %
[2023-03-28 15:07] LABS: INR 1.03 (0.88-1.18)
[2023-03-28 15:16] LABS: Albumin 3.8 g/dL (3.2-5.2); Albumin/Globulin Ratio 1.2 (1-3); Calcium 9.3 mg/dL (8.6-10.3); Creatinine, Serum 3.15 mg/dL (0.51-0.95); Globulin 3.1 g/dL (2-4); Potassium 3.3 mmol/L (3.5-5.0); Total Bilirubin 0.5 mg/dL (0.2-1.0); Total Protein 6.9 g/dL (6.4-8.9); eGFR CKD-EPI 16.7 (>60)
[2023-03-28] MEDS ORDERED: KCL 20 MEQ/100 ML IVPREMIX 20 MEQ/100 ML BAG IV ONE (15:55)
[2023-03-28 16:26] LABS: Magnesium 2.9 mg/dL (1.9-2.7)
[2023-03-28] MEDS ORDERED: Prochlorperazine 5 mg/ml 2 ml VIAL (10 mg) IV ONE (17:30)
[2023-03-28 18:32] LABS: Urine Appearance Cloudy; Urine Bilirubin Negative (Negative); Urine Blood Negative (Negative); Urine Color Yellow; Urine Glucose Negative (Negative); Urine Ketones Negative (Negative); Urine Nitrite Negative (Negative); Urine Protein 1+(30 mg/dL) (Negative); Urine Urobilinogen Negative (Negative)
[2023-03-28 18:44] LABS: Urine Bacteria Absent (Absent); Urine Red Blood Cell Absent (Absent); Urine Squamous Epithelial Cell Present (Absent); Urine White Blood Cell Trace(0-5/hpf) (Absent)
[2023-03-28] MEDS ORDERED: Prochlorperazine 5 mg/ml 2 ml VIAL (10 mg) IV PRN ×2 (19:00→19:03)
[2023-03-28] MEDS ORDERED: Magnesium Hydroxide LIQ 30 ML UDC PO PRN (19:01)
[2023-03-28] MEDS ORDERED: Polyethylene Glycol 3350 17 GM PACKET PO PRN (19:01)
[2023-03-28] MEDS ORDERED: Senna TAB 8.6 mg TAB PO PRN (19:01)
[2023-03-28] MEDS ORDERED: Mineral Oil ENEMA 118 ML/BOTTLE BOTTLE PR ONE (19:53)
[2023-03-28] MEDS ORDERED: Magnesium Hydroxide LIQ 30 ML UDC PO SCH (21:00)
[2023-03-28] MEDS: NS 0.9% 1000 ml BAG 1,000 ML IV SCH (23:51)
[2023-03-29] MEDS: Metoclopramide 5 MG/ML VIAL (10 mg) IV PRN ×3 (02:21→15:30)
[2023-03-29] MEDS ORDERED: Ondansetron 4 mg VIAL 2 MG/ML 2 ml VIAL IV ONE (04:58)
[2023-03-29] MEDS ORDERED: Acetaminophen IV 1 GM/100ML 1,000 MG/100 ML BAG IV ONE (05:02)
[2023-03-29] MEDS ORDERED: Scopolamine 1 mg/72hr PATCH TRANSDERM PRN (05:03)
[2023-03-29] MEDS ORDERED: Polyethylene Glycol 3350 17 GM PACKET PO SCH ×2 (09:00→14:00)
[2023-03-29] MEDS ORDERED: Lactulose 30 ml UDC PO SCH (09:00)
[2023-03-29] MEDS: Prochlorperazine 5 mg/ml 2 ml VIAL (10 mg) IV PRN ×2 (09:33→15:30)
[2023-03-29] MEDS: Ondansetron 4 mg VIAL 2 MG/ML 2 ml VIAL IV PRN ×2 (09:33→15:30)
[2023-03-29] MEDS: NS 0.9% 1000 ml BAG 1,000 ML IV SCH ×2 (09:33→18:42)
[2023-03-29] MEDS: Senna TAB 8.6 mg TAB PO SCH ×2 (13:23→21:20)
[2023-03-29] MEDS: Lactulose 30 ml UDC PO SCH ×2 (13:25→21:19)
[2023-03-29 13:52] LABS: ABS Basophils 0.1 10^3/uL (0.0-0.1); ABS Eosinophils 0.1 10^3/uL (0.0-0.5); ABS Lymphocytes 3.1 10^3/uL (1.0-4.8); ABS Monocytes 1.2 10^3/uL (0.0-0.9); ABS Neutrophils 6.1 10^3/uL (1.5-7.6); ABS Nucleated RBC 0.01 10^3/ul; Eosinophil % 1.3 %; Hematocrit 36.6 % (35-45); Hemoglobin 12.2 g/dL (11.5-14.3); Lymphocyte % 29.6 %; Mean Corpuscular Hemoglobin 28.4 pg (27-33); Mean Corpuscular Hgb Conc 33.2 g/dL (31-36); Mean Corpuscular Volume 85.5 fL (80-97); Mean Platelet Volume 7.2 fL (7.5-11.2); Nucleated Red Blood Cells % 0.1 /100 WBC (0.0-0.4); Platelet Count 348 10^3/uL (150-450); Red Blood Count 4.29 10^6/uL (3.63-4.92); White Blood Count 10.6 10^3/uL (3.8-11.8)
[2023-03-29 14:08] LABS: Calcium 9.3 mg/dL (8.6-10.3); Creatinine, Serum 2.13 mg/dL (0.51-0.95); Magnesium 2.8 mg/dL (1.9-2.7); Potassium 3.2 mmol/L (3.5-5.0); eGFR CKD-EPI 26.7 (>60)
[2023-03-29] MEDS: KCL 10 MEQ/50 ML IVPREMIX 10 MEQ/50 ML BAG IV SCH ×4 (15:28→22:41)
[2023-03-29 18:52] VITALS: BP 142/69
== END 2023-03-30 04:49 | disposition left against medical advice (07) ==
LOC: ED 12:41 → EDHOLD 12:41 → SUATTDRO 18:42 → MEDTELE 20:28
PROVIDERS: ADMIT Internal Medicine; ATTEND Hospitalist

== ENCOUNTER 2024-03-25 11:49 | Inpatient (IN) ==
[2024-03-25] MEDS: Ondansetron 4 mg VIAL 2 MG/ML 2 ml VIAL IV ONE ×2 (13:10→15:03)
[2024-03-25] MEDS: Morphine 4 MG/ML VIAL (1 ml) IV ONE ×2 (13:10→14:53)
[2024-03-25] MEDS: Lactated Ringers 1000 ml BAG 1,000 ML IV ONE (13:13)
[2024-03-25 13:22] LABS: ABS Basophils 0.1 10^3/uL (0.0-0.1); ABS Eosinophils 0.2 10^3/uL (0.0-0.5); ABS Lymphocytes 3.1 10^3/uL (1.0-4.8); ABS Monocytes 0.8 10^3/uL (0.0-0.9); ABS Neutrophils 7.4 10^3/uL (1.5-7.6); Eosinophil % 2.1 %; Hematocrit 39.5 % (35-45); Hemoglobin 13.1 g/dL (11.5-14.3); Lymphocyte % 26.7 %; Mean Corpuscular Hemoglobin 28.9 pg (27-33); Mean Corpuscular Hgb Conc 33.2 g/dL (31-36); Mean Corpuscular Volume 87.3 fL (80-97); Platelet Count 363 10^3/uL (150-450); Red Blood Count 4.53 10^6/uL (3.63-4.92); Red Cell Distribution Width 14.8 % (12-17); White Blood Count 11.6 10^3/uL (3.8-11.8)
[2024-03-25 13:59] LABS: Albumin 4.1 g/dL (3.2-5.2); Albumin/Globulin Ratio 1.5 (1-3); C Reactive Protein 1.15 mg/L (<8.01); Calcium 10.3 mg/dL (8.6-10.3); Creatinine, Serum 1.01 mg/dL (0.51-0.95); Globulin 2.7 g/dL (2-4); Magnesium 1.9 mg/dL (1.9-2.7); Potassium 3.2 mmol/L (3.5-5.0); Total Bilirubin 0.5 mg/dL (0.2-1.0); Total Protein 6.8 g/dL (6.4-8.9); eGFR CKD-EPI 64.9 (>60)
[2024-03-25 14:31] LABS: Urine Appearance Clear; Urine Bilirubin Negative (Negative); Urine Blood Negative (Negative); Urine Color Light-Yellow; Urine Glucose Negative (Negative); Urine Ketones Negative (Negative); Urine Nitrite Negative (Negative); Urine Protein Negative (Negative); Urine Specific Gravity 1.012 (1.002-1.030); Urine Urobilinogen Negative (Negative); Urine pH 7.5 (5.0-8.0)
[2024-03-25] MEDS: Droperidol 5 MG/2 ML 2 ML VIAL IV ONE (16:14)
[2024-03-25] MEDS: Prochlorperazine 5 mg/ml 2 ml VIAL (10 mg) IV ONE (16:24)
[2024-03-25] MEDS: Piperacillin/Tazobac 3.375 BAG 3.375 GM/100 ML BAG IV ONE (17:00)
[2024-03-25] MEDS ORDERED: Zosyn per Pharmacy NOTE FOLLOW UP SCH (18:00)
[2024-03-25] MEDS: KCL 20 MEQ/100 ML IVPREMIX 20 MEQ/100 ML BAG IV SCH (18:18)
[2024-03-25] MEDS: Prochlorperazine 5 mg/ml 2 ml VIAL (10 mg) IV PRN (18:23)
[2024-03-25] MEDS: Ondansetron 4 mg VIAL 2 MG/ML 2 ml VIAL IV PRN (20:10)
[2024-03-25] MEDS: Morphine 2 MG/ML SYRINGE IV PRN (20:15)
[2024-03-25] MEDS: ZOSYN 3.375 GM Q8H per EXTENDED INFUSION IV SCH ×2 (23:06→23:29)
[2024-03-25] MEDS: Lactated Ringers 1000 ml BAG 1,000 ML IV SCH (23:09)
[2024-03-25] MEDS: NS 0.9% 1000 ml BAG 1,000 ML IV SCH (23:29)
[2024-03-26] MEDS: Lactulose 30 ml UDC PO ONE (14:57)
[2024-03-26 15:03] LABS: ABS Basophils 0.1 10^3/uL (0.0-0.1); ABS Lymphocytes 2.4 10^3/uL (1.0-4.8); ABS Monocytes 1.3 10^3/uL (0.0-0.9); ABS Neutrophils 13.5 10^3/uL (1.5-7.6); Hematocrit 37.8 % (35-45); Hemoglobin 12.5 g/dL (11.5-14.3); Mean Corpuscular Hemoglobin 28.9 pg (27-33); Mean Corpuscular Hgb Conc 33.1 g/dL (31-36); Mean Corpuscular Volume 87.4 fL (80-97); Mean Platelet Volume 8.3 fL (7.5-11.2); Platelet Count 362 10^3/uL (150-450); Red Blood Count 4.33 10^6/uL (3.63-4.92); Red Cell Distribution Width 14.4 % (12-17); White Blood Count 17.4 10^3/uL (3.8-11.8)
[2024-03-26 15:56] LABS: Calcium 9.7 mg/dL (8.6-10.3); Creatinine, Serum 1.07 mg/dL (0.51-0.95); Potassium 3.3 mmol/L (3.5-5.0); eGFR CKD-EPI 60.6 (>60)
[2024-03-26] MEDS: Iohexol 300 (CONTRAST) 10 ML SDV IV ONE (16:10)
[2024-03-26] MEDS: SMOG Enema (MgOH-NS-Gly-MinO) 330 ML ENEMA PR ONE (23:38)
[2024-03-27] MEDS: Mineral Oil ENEMA 118 ML/BOTTLE BOTTLE PR ONE (04:20)
[2024-03-27] MEDS: GLYCERIN (BULK BTL) 177 ML ONE (04:20)
[2024-03-27] MEDS: Magnesium Hydroxide LIQ 30 ML UDC ONE (04:20)
[2024-03-27] MEDS: Saline FLUSH-PERIPHERAL 10 ML SYRINGE ONE (04:21)
[2024-03-27] MEDS: Polyethylene Glycol 3350 17 GM PACKET PO PRN (14:19)
[2024-03-27] MEDS: Senna TAB 8.6 mg TAB PO PRN (14:19)
[2024-03-27] MEDS: Lactulose 30 ml UDC PO PRN (14:21)
[2024-03-27] MEDS: PEG 3000 GI LAVAGE 1 GALLON PO ONE (21:28)
[2024-03-27] MEDS: Ondansetron ODT 4 mg TAB 4 MG TAB SL PRN (22:40)
[2024-03-28] MEDS: Sodium Phosphate ADULT ENEMA 133 ML BTL PR ONE ×2 (00:01→19:52)
[2024-03-28] MEDS: ZOSYN 3.375 GM x ONE DOSE over 30 miuntes IV (02:51)
[2024-03-28 06:42] LABS: ABS Basophils 0.1 10^3/uL (0.0-0.1); ABS Lymphocytes 3.4 10^3/uL (1.0-4.8); ABS Monocytes 1.5 10^3/uL (0.0-0.9); ABS Neutrophils 10.2 10^3/uL (1.5-7.6); Eosinophil % 0.3 %; Hemoglobin 13.2 g/dL (11.5-14.3); Lymphocyte % 22.1 %; Mean Corpuscular Hemoglobin 28.8 pg (27-33); Mean Corpuscular Hgb Conc 33.1 g/dL (31-36); Platelet Count 342 10^3/uL (150-450); Red Cell Distribution Width 14.6 % (12-17); White Blood Count 15.2 10^3/uL (3.8-11.8)
[2024-03-28 07:10] LABS: Calcium 9.7 mg/dL (8.6-10.3); Creatinine, Serum 1.04 mg/dL (0.51-0.95); Potassium 3.2 mmol/L (3.5-5.0); eGFR CKD-EPI 62.7 (>60)
[2024-03-28] MEDS: ZOSYN 3.375 GM Q8H per EXTENDED INFUSION IV SCH (08:00)
[2024-03-28] MEDS: KCL 20 MEQ/100 ML IVPREMIX 20 MEQ/100 ML BAG IV SCH (10:42)
[2024-03-29 06:36] LABS: Hematocrit 39.6 % (35-45); Hemoglobin 13.3 g/dL (11.5-14.3); Mean Corpuscular Hemoglobin 29.1 pg (27-33); Mean Corpuscular Hgb Conc 33.6 g/dL (31-36); Mean Corpuscular Volume 86.7 fL (80-97); Mean Platelet Volume 8.3 fL (7.5-11.2); Platelet Count 342 10^3/uL (150-450); Red Blood Count 4.57 10^6/uL (3.63-4.92); Red Cell Distribution Width 14.3 % (12-17); White Blood Count 16.4 10^3/uL (3.8-11.8)
[2024-03-29 07:06] LABS: Calcium 9.4 mg/dL (8.6-10.3); Creatinine, Serum 0.92 mg/dL (0.51-0.95); Magnesium 1.8 mg/dL (1.9-2.7); Potassium 3.1 mmol/L (3.5-5.0); eGFR CKD-EPI 72.6 (>60)
[2024-03-29 07:44] LABS: ABS Basophils 0.1 10^3/uL (0.0-0.1); ABS Eosinophils 0.1 10^3/uL (0.0-0.5); ABS Lymphocytes 3.4 10^3/uL (1.0-4.8); ABS Monocytes 2.1 10^3/uL (0.0-0.9); ABS Neutrophils 10.7 10^3/uL (1.5-7.6); ABS Nucleated RBC 0.01 10^3/ul; Eosinophil % 0.8 %; Lymphocyte % 20.8 %
[2024-03-29] MEDS: KCL 20 MEQ/100 ML IVPREMIX 20 MEQ/100 ML BAG IV SCH (08:43)
[2024-03-29 20:26] LABS: Calcium 9.4 mg/dL (8.6-10.3); Creatinine, Serum 0.99 mg/dL (0.51-0.95); Potassium 3.6 mmol/L (3.5-5.0); eGFR CKD-EPI 66.5 (>60)
[2024-03-30 08:20] LABS: Hematocrit 39.1 % (35-45); Hemoglobin 12.9 g/dL (11.5-14.3); Mean Corpuscular Hemoglobin 28.6 pg (27-33); Mean Corpuscular Hgb Conc 32.9 g/dL (31-36); Mean Corpuscular Volume 86.8 fL (80-97); Mean Platelet Volume 8.3 fL (7.5-11.2); Platelet Count 351 10^3/uL (150-450); Red Cell Distribution Width 14.3 % (12-17); White Blood Count 15.9 10^3/uL (3.8-11.8)
[2024-03-30 08:38] LABS: ABS Basophils 0.1 10^3/uL (0.0-0.1); ABS Eosinophils 0.2 10^3/uL (0.0-0.5); ABS Lymphocytes 3.4 10^3/uL (1.0-4.8); ABS Monocytes 1.9 10^3/uL (0.0-0.9); ABS Neutrophils 10.3 10^3/uL (1.5-7.6); ABS Nucleated RBC 0.01 10^3/ul; Eosinophil % 0.9 %; Lymphocyte % 21.5 %
[2024-03-30 08:41] LABS: Calcium 9.1 mg/dL (8.6-10.3); Creatinine, Serum 0.95 mg/dL (0.51-0.95); Magnesium 1.8 mg/dL (1.9-2.7); Potassium 3.3 mmol/L (3.5-5.0); eGFR CKD-EPI 69.9 (>60)
[2024-03-30] MEDS: Magnesium Sulfate 2 gm BAG 2 GM/50 ML BAG IVPB ONE (12:06)
[2024-03-30] MEDS: KCL 20 MEQ/100 ML IVPREMIX 20 MEQ/100 ML BAG IV SCH (13:05)
[2024-03-30] MEDS: Senna TAB 8.6 mg TAB PO SCH (22:06)
[2024-03-31] MEDS: Ondansetron 4 mg VIAL 2 MG/ML 2 ml VIAL IV PRN (00:34)
[2024-03-31 09:39] VITALS: BP 123/104
[2024-03-31] MEDS: Polyethylene Glycol 3350 17 GM PACKET PO SCH (09:51)
[2024-03-31 09:55] LABS: ABS Basophils 0.2 10^3/uL (0.0-0.1); ABS Eosinophils 0.5 10^3/uL (0.0-0.5); ABS Lymphocytes 4.8 10^3/uL (1.0-4.8); ABS Monocytes 1.5 10^3/uL (0.0-0.9); ABS Neutrophils 7.4 10^3/uL (1.5-7.6); Eosinophil % 3.3 %; Hematocrit 37.2 % (35-45); Hemoglobin 12.2 g/dL (11.5-14.3); Lymphocyte % 33.4 %; Mean Corpuscular Hemoglobin 28.4 pg (27-33); Mean Corpuscular Hgb Conc 32.8 g/dL (31-36); Mean Corpuscular Volume 86.8 fL (80-97); Mean Platelet Volume 8.1 fL (7.5-11.2); Platelet Count 329 10^3/uL (150-450); Red Blood Count 4.29 10^6/uL (3.63-4.92); Red Cell Distribution Width 14.8 % (12-17); White Blood Count 14.4 10^3/uL (3.8-11.8)
[2024-03-31 10:36] LABS: Calcium 8.7 mg/dL (8.6-10.3); Creatinine, Serum 1.09 mg/dL (0.51-0.95); Potassium 3.4 mmol/L (3.5-5.0); eGFR CKD-EPI 59.3 (>60)
== END 2024-03-31 11:50 | disposition home or self-care (01) | DRG 254 ==
LOC: EDHOLD 11:49 → ED 11:49 → SUATTDRO 17:47 → MED 21:39 → SUATTDRO 03-27 11:45
PROVIDERS: ADMIT Student in an Organized Health Care Education/Training Program; ATTEND Internal Medicine